=== PATIENT | male | born 1935 | race Caucasian/White ===

== ENCOUNTER 2017-01-18 10:00 | Outpatient (RCR) | payer MEDICARE, OTHER ==
[2017-01-04 10:00] VITALS: BP 136/52; PULSE 49; TEMP 97.2
[2017-01-12 10:00] VITALS: BP 143/53; PULSE 58; TEMP 98.1
[~2017-01-18] VITALS: Ht 182.9 cm; Wt 95.0 kg
[~2017-01-18 10:00] MED LIST: ACTOS30 MG PO; ALBUTEROL0.09 MG/A3 IH; ALDACTONE 25MG25 M1 PO; ASPI81TA; ASPIRIN 81M81 MG/TA2 PO; ASPIRIN E.C. 8181 MG PO; AZILECT1 MG PO; BLOOD PRESSURE MED; CIPRO 500MG TA500 MG PO; DOXYCYCLINE 10100 MG PO; GLUCOPHAGE1000 MG PO; HCTZ 25MG TAB25 MG PO; HCTZ 25MG25 MG PO; HUMULIN 70/3100 U/M1 SQ; HUMULIN 70/3100 U/ML SC; HYDRODIURIL50 MG PO; INSHUMULIN7030 SC; INSULIN 70/3100 U/ML IJ; LASIX 20MG TABL20 MG PO; MIRAPEX 1MG PO; MIRAPEX0.5 MG PO; MULTIVITAMIN SEN PO; NEURONTIN300 MG/CAP PO; PHENERGAN/CODEIN1 ML PO; PLENDIL10 MG PO; SINEMET 25/101 UDTAB PO; ZANTAC 150MG T150 MG PO; ZESTRIL40 MG PO; ZITHROMAX Z PA250 MG PO; ZOCOR; ZOCOR 20MG20 MG PO
[2017-01-18 10:17] VITALS: BP 136/55; PULSE 51; TEMP 97.5
== END 2017-01-18 11:15 | disposition home or self-care (01) ==
LOC: EUO 10:00
DX: C67.9 Malignant neoplasm of bladder, unspecified (principal)
CPT/HCPCS: J9031; J9214

== ENCOUNTER 2017-05-10 10:00 | Outpatient (RCR) | payer MEDICARE, OTHER ==
[2017-04-26 11:06] VITALS: BP 114/52; PULSE 48; TEMP 97.4
[2017-05-03 10:48] VITALS: BP 135/57; PULSE 55; TEMP 97.5
[~2017-05-10] VITALS: Ht 182.9 cm; Wt 97.7 kg
[2017-05-10 10:21] VITALS: BP 123/50; PULSE 49; TEMP 97.4
== END 2017-05-10 11:13 | disposition home or self-care (01) ==
LOC: EUO 10:00
DX: Z51.11 Encounter for antineoplastic chemotherapy (principal); C67.9 Malignant neoplasm of bladder, unspecified
CPT/HCPCS: J9031; J9214

== ENCOUNTER → 2017-10-19 | Outpatient (CLI) | payer MEDICARE, OTHER | LOC: COL.RAD 12:35 | DX: M25.551 Pain in right hip (principal) | CPT/HCPCS: J3301; Q9967 ==

== ENCOUNTER 2018-02-17 10:00 | Outpatient (RCR) | payer MEDICARE, OTHER | END 2018-02-18 14:58 | disposition home or self-care (01) | LOC: WSOT 10:00 | DX: G20 Parkinson's disease (principal) | CPT/HCPCS: G8987-GO; G8988-GO; G8989-GO ==

== ENCOUNTER → 2018-05-31 | Outpatient (CLI) | payer MEDICARE, OTHER ==
[2018-05-31 14:00] LABS: HEMATOCRIT 37.7 % (42.0-52.0); HEMOGLOBIN 11.9 g/dl (13.5-18.0); MEAN CELL VOLUME 95 fl (80.0-100.0); MEAN CORPUSCULAR HEMOGLOBIN 30 pg (27.0-31.0); MEAN CORPUSCULAR HGB CONC 32 g/dl (33.0-37.0); MEAN PLATELET VOLUME 9.8 fl (7.4-10.4); PLATELET COUNT 169 K/mm3 (130-400); RED BLOOD COUNT 3.95 M/mm3 (4.20-5.60); REDCELL DISTRIBUTION WIDTH-CV 14.4 % (11.5-14.5)
[2018-05-31 14:10] LABS: CALCIUM 8.7 mg/dL (8.4-10.2); CREATININE, serum 1.76 mg/dL (0.66-1.25); POTASSIUM 4.4 mmol/L (3.4-5.0)
[2018-05-31 14:16] LABS: INR 1.1 (0.8-3.0); PROTHROMBIN TIME 12.1 SECONDS (9.7-12.8)
== END ==
LOC: COL.LAB 13:02
PROVIDERS: Internal Medicine Interventional Cardiology
DX: R00.1 Bradycardia, unspecified (principal)

== ENCOUNTER → 2018-07-12 | Outpatient (CLI) | payer MEDICARE, OTHER | LOC: COL.RAD 13:09 | DX: J41.1 Mucopurulent chronic bronchitis (principal); Z95.828 Presence of other vascular implants and grafts ==

== ENCOUNTER 2018-09-04 22:55 | Observation (INO) | payer MEDICARE, OTHER ==
[~2018-09-04] VITALS: Ht 182.9 cm; Wt 96.1 kg
[2018-09-04 23:25] LABS: BASO # 0.1 (0.0-0.2); BASO % 0.8 % (0.0-2.0); EOS # 0.5 (0.0-0.7); EOS % 5.2 % (0-4.0); GRAN % 65.5 % (42.2-75.2); HEMATOCRIT 40.2 % (42.0-52.0); LYMPH # 1.6 (1.2-3.4); LYMPH % 17.7 % (20.0-51.0); MEAN CELL VOLUME 94 fl (80.0-100.0); MEAN CORPUSCULAR HEMOGLOBIN 30 pg (27.0-31.0); MEAN CORPUSCULAR HGB CONC 32 g/dl (33.0-37.0); MEAN PLATELET VOLUME 9.5 fl (7.4-10.4); MONO # 0.9 (0.1-0.6); MONO % 10.4 % (1.7-9.3); PLATELET COUNT 210 K/mm3 (130-400); RED BLOOD COUNT 4.27 M/mm3 (4.20-5.60); REDCELL DISTRIBUTION WIDTH-CV 13.6 % (11.5-14.5)
[2018-09-04 23:36] LABS: ALBUMIN 4.1 gm/dL (3.5-5.0); BILIRUBIN,TOTAL 0.3 mg/dL (0.0-1.0); CALCIUM 9.2 mg/dL (8.4-10.2); CREATININE, serum 1.91 mg/dL (0.66-1.25); POTASSIUM 4.9 mmol/L (3.4-5.0); TOTAL PROTEIN 6.8 gm/dL (6.4-8.2)
[2018-09-05] MEDS ORDERED: MIRAPEX0.75 MG PO (00:46)
[2018-09-05] MEDS ORDERED: AZILECT1 MG PO (00:59)
[2018-09-05] MEDS ORDERED: ALDACTONE 25MG25 M1 (01:00)
[2018-09-05] MEDS ORDERED: JANUVIA50 MG PO (01:00)
[2018-09-05] MEDS ORDERED: NORCO 325 MG-51 TAB PO (01:01)
[2018-09-05] MEDS ORDERED: PRESERVISION1 SGL PO (01:01)
[2018-09-05 01:15] LABS: COLLECTION METHOD CLEAN CATCH
[2018-09-05 01:18] LABS: PH 5 (5-8); SQUAMOUS EPITHELIAL 0-2 /hpf; URINE APPEARANCE Clear; URINE BACTERIA None Seen /hpf; URINE BILIRUBIN Negative (NEGATIVE); URINE BLOOD Negative (NEGATIVE); URINE COLOR Yellow; URINE GLUCOSE Negative (NEGATIVE); URINE KETONE Negative (NEGATIVE); URINE LEUKOCYTE ESTERASE Negative (NEGATIVE); URINE NITRATE Negative (NEGATIVE); URINE PROTEIN(semi-quant) Negative (NEGATIVE); URINE RBC 0-2 /hpf; URINE UROBILINOGEN Negative (NEGATIVE)
[2018-09-05 01:32] VITALS: BP 151/61; PULSE 62; TEMP 97.6
[2018-09-05 04:58] VITALS: BP 136/62; PULSE 62
[2018-09-05 07:47] VITALS: BP 155/55; PULSE 62; TEMP 97.5
[2018-09-05 11:14] VITALS: BP 163/67; PULSE 74; TEMP 97.2
[2018-09-05 15:07] VITALS: BP 143/55; PULSE 60; TEMP 97.2
[2018-09-05 19:56] VITALS: BP 148/54; PULSE 61; TEMP 97.9
[2018-09-06 00:20] VITALS: BP 157/56; PULSE 64; TEMP 97.6
[2018-09-06 04:15] VITALS: BP 140/60; PULSE 59; TEMP 97.9
[2018-09-06 07:33] VITALS: BP 149/56; PULSE 61; TEMP 97.5
== END 2018-09-06 13:56 | disposition home or self-care (01) ==
LOC: COL.ER 22:55 → MEDICAL 09-05 01:04
PROVIDERS: Emergency Medicine
DX: E11.649 Type 2 diabetes mellitus with hypoglycemia without coma (principal); G20 Parkinson's disease; I10 Essential (primary) hypertension; E78.5 Hyperlipidemia, unspecified; E11.40 Type 2 diabetes mellitus with diabetic neuropathy, unspecified; K59.00 Constipation, unspecified; G31.84 Mild cognitive impairment of uncertain or unknown etiology; Z79.4 Long term (current) use of insulin; Z79.82 Long term (current) use of aspirin; Z85.51 Personal history of malignant neoplasm of bladder; Z87.891 Personal history of nicotine dependence; Z82.3 Family history of stroke; Z83.3 Family history of diabetes mellitus; Z82.49 Family history of ischemic heart disease and other diseases of the circulatory system; Z80.52 Family history of malignant neoplasm of bladder
CPT/HCPCS: G0378; J1815; J7042

== ENCOUNTER 2018-11-12 08:41 | Emergency (ER) | payer MEDICARE, OTHER ==
[~2018-11-12] VITALS: Ht 182.9 cm; Wt 90.9 kg
[~2018-11-12 08:41] MED LIST changes: +ALDACTONE 25MG25 M1; +JANUVIA50 MG PO; +MIRAPEX0.75 MG PO; +NORCO 325 MG-51 TAB PO; +PRESERVISION1 SGL PO
[2018-11-12 08:44] VITALS: BP 136/64; TEMP 97.5
[2018-11-12] MEDS ORDERED: NOVOLIN 70/30 710 ML SQ ×2 (09:32→09:34)
[2018-11-12 10:19] LABS: BASO # 0.1 (0.0-0.2); BASO % 0.5 % (0.0-2.0); EOS # 0.1 (0.0-0.7); EOS % 1.2 % (0-4.0); GRAN # 8.6 (1.4-6.5); GRAN % 78.7 % (42.2-75.2); HEMATOCRIT 40.1 % (42.0-52.0); HEMOGLOBIN 12.9 g/dl (13.5-18.0); LYMPH # 1.3 (1.2-3.4); LYMPH % 11.9 % (20.0-51.0); MEAN CELL VOLUME 93 fl (80.0-100.0); MEAN CORPUSCULAR HEMOGLOBIN 30 pg (27.0-31.0); MEAN CORPUSCULAR HGB CONC 32 g/dl (33.0-37.0); MEAN PLATELET VOLUME 9.6 fl (7.4-10.4); MONO # 0.8 (0.1-0.6); PLATELET COUNT 172 K/mm3 (130-400); RED BLOOD COUNT 4.31 M/mm3 (4.20-5.60); REDCELL DISTRIBUTION WIDTH-CV 14.6 % (11.5-14.5)
[2018-11-12 10:27] LABS: ALBUMIN 3.9 gm/dL (3.5-5.0); BILIRUBIN,TOTAL 0.4 mg/dL (0.0-1.0); CALCIUM 9.2 mg/dL (8.4-10.2); CREATININE, serum 1.87 mg/dL (0.66-1.25); POTASSIUM 4.7 mmol/L (3.4-5.0); TOTAL PROTEIN 6.7 gm/dL (6.4-8.2)
[2018-11-12 12:34] VITALS: PULSE 70
== END 2018-11-12 12:35 | disposition home or self-care (01) ==
LOC: COL.ER 08:41
PROVIDERS: Emergency Medicine
DX: E11.649 Type 2 diabetes mellitus with hypoglycemia without coma (principal); Z79.82 Long term (current) use of aspirin; Z79.4 Long term (current) use of insulin; Z79.02 Long term (current) use of antithrombotics/antiplatelets

== ENCOUNTER → 2018-12-31 | Outpatient (CLI) | payer MEDICARE, OTHER ==
[~2018-12-31] MED LIST changes: +NOVOLIN 70/30 710 ML SQ
[2018-12-31 13:37] LABS: ALBUMIN 4.1 gm/dL (3.5-5.0); BILIRUBIN,TOTAL 0.3 mg/dL (0.0-1.0); CALCIUM 8.9 mg/dL (8.4-10.2); CREATININE, serum 1.57 (0.66-1.25); POTASSIUM 4.9 mmol/L (3.4-5.0); TOTAL PROTEIN 7.2 gm/dL (6.4-8.2)
[2018-12-31 14:23] LABS: BASO % 0.3 % (0.0-2.0); EOS # 0.2 (0.0-0.7); EOS % 2.5 % (0-4.0); GRAN # 6.7 (1.4-6.5); GRAN % 76.7 % (42.2-75.2); HEMATOCRIT 39.7 % (42.0-52.0); HEMOGLOBIN 12.4 g/dl (13.5-18.0); LYMPH # 1.1 (1.2-3.4); LYMPH % 12.3 % (20.0-51.0); MEAN CELL VOLUME 95 fl (80.0-100.0); MEAN CORPUSCULAR HEMOGLOBIN 30 pg (27.0-31.0); MEAN CORPUSCULAR HGB CONC 31 g/dl (33.0-37.0); MEAN PLATELET VOLUME 10.5 fl (7.4-10.4); MONO # 0.7 (0.1-0.6); PLATELET COUNT 155 K/mm3 (130-400); RED BLOOD COUNT 4.17 M/mm3 (4.20-5.60); REDCELL DISTRIBUTION WIDTH-CV 13.2 % (11.5-14.5)
== END ==
LOC: COL.RAD 12:29 → COL.LAB 12:29
PROVIDERS: Family Medicine
DX: J20.9 Acute bronchitis, unspecified (principal); Z95.0 Presence of cardiac pacemaker; R09.89 Other specified symptoms and signs involving the circulatory and respiratory systems

== ENCOUNTER 2019-02-24 21:35 | Emergency (ER) | payer MEDICARE, OTHER ==
[~2019-02-24] VITALS: Ht 182.9 cm; Wt 95.5 kg
[2019-02-24 21:39] VITALS: BP 174/76; TEMP 97.9
[2019-02-24 23:02] LABS: BASO % 0.5 % (0.0-2.0); EOS # 0.4 (0.0-0.7); EOS % 4.8 % (0-4.0); GRAN # 5.7 (1.4-6.5); GRAN % 75.6 % (42.2-75.2); HEMOGLOBIN 11.2 g/dl (13.5-18.0); LYMPH # 0.7 (1.2-3.4); LYMPH % 9.7 % (20.0-51.0); MEAN CELL VOLUME 95 fl (80.0-100.0); MEAN CORPUSCULAR HEMOGLOBIN 30 pg (27.0-31.0); MEAN CORPUSCULAR HGB CONC 32 g/dl (33.0-37.0); MEAN PLATELET VOLUME 9.7 fl (7.4-10.4); MONO # 0.7 (0.1-0.6); MONO % 9.1 % (1.7-9.3); PLATELET COUNT 161 K/mm3 (130-400); RED BLOOD COUNT 3.73 M/mm3 (4.20-5.60); REDCELL DISTRIBUTION WIDTH-CV 13.4 % (11.5-14.5)
[2019-02-24 23:03] LABS: HEMATOCRIT 35.5 % (42.0-52.0)
[2019-02-24 23:14] LABS: PROTHROMBIN TIME 11.6 SECONDS (9.7-12.8)
[2019-02-24 23:15] LABS: CREATININE, serum 1.92 (0.66-1.25); POTASSIUM 4.9 mmol/L (3.4-5.0)
[2019-02-25 00:35] VITALS: PULSE 86
== END 2019-02-25 00:25 | disposition home or self-care (01) ==
LOC: COL.ER 21:35
PROVIDERS: Emergency Medicine
DX: R60.9 Edema, unspecified (principal); Z95.0 Presence of cardiac pacemaker; Z79.82 Long term (current) use of aspirin; Z79.4 Long term (current) use of insulin
CPT/HCPCS: J1650

== ENCOUNTER → 2019-03-07 | Outpatient (CLI) | payer MEDICARE, OTHER | LOC: COL.RAD 11:42 | DX: I82.B12 Acute embolism and thrombosis of left subclavian vein (principal) | CPT/HCPCS: A9540; A9567 ==

== ENCOUNTER 2019-03-18 15:54 | Emergency (ER) | payer MEDICARE, OTHER ==
[~2019-03-18] VITALS: Ht 182.9 cm; Wt 97.3 kg
[2019-03-18 15:57] VITALS: BP 142/63; TEMP 97.2
[2019-03-18] MEDS ORDERED: JANTOVEN2 MG (16:00)
[2019-03-18] MEDS ORDERED: CEPHALEXIN500 M1 PO (17:54)
[2019-03-18 18:05] VITALS: PULSE 79
== END 2019-03-18 18:02 | disposition home or self-care (01) ==
LOC: COL.ER 15:54
DX: S62.667A Nondisplaced fracture of distal phalanx of left little finger, initial encounter for closed fracture (principal); S61.213A Laceration without foreign body of left middle finger without damage to nail, initial encounter; S61.211A Laceration without foreign body of left index finger without damage to nail, initial encounter; S61.215A Laceration without foreign body of left ring finger without damage to nail, initial encounter; I25.10 Atherosclerotic heart disease of native coronary artery without angina pectoris; Z95.0 Presence of cardiac pacemaker; Z79.01 Long term (current) use of anticoagulants; E11.9 Type 2 diabetes mellitus without complications; E78.5 Hyperlipidemia, unspecified; I10 Essential (primary) hypertension; G20 Parkinson's disease; W27.0XXA Contact with workbench tool, initial encounter

== ENCOUNTER → 2019-07-19 | Outpatient (CLI) | payer MEDICARE, OTHER ==
[~2019-07-19] MED LIST changes: +ANORO IH; +CEPHALEXIN500 M1 PO; +COZAAR 25MG25 MG/TAB PO; +DEMADEX 20MG20 M1 PO; +ELIQUIS 2.5 PO; +ELIQUIS 5MG PO; +JANTOVEN2 MG; +LANTUS SOLOS100 U/ML SQ
== END ==
LOC: COL.RAD 08:30
DX: G20 Parkinson's disease (principal); H53.2 Diplopia

== ENCOUNTER 2019-08-09 17:38 | Emergency (ER) | payer MEDICARE, OTHER ==
[~2019-08-09] VITALS: Ht 182.9 cm; Wt 87.7 kg
[2019-08-09 17:43] VITALS: BP 140/63; TEMP 97.7
[2019-08-09] MEDS ORDERED: CEPHALEXIN500 M1 PO (20:22)
[2019-08-09 20:35] VITALS: PULSE 68
== END 2019-08-09 20:35 | disposition home or self-care (01) ==
LOC: COL.ER 17:38
DX: S61.412A Laceration without foreign body of left hand, initial encounter (principal); I11.0 Hypertensive heart disease with heart failure; I50.9 Heart failure, unspecified; G20 Parkinson's disease; J44.9 Chronic obstructive pulmonary disease, unspecified; Z79.4 Long term (current) use of insulin; Z79.82 Long term (current) use of aspirin; W26.8XXA Contact with other sharp object(s), not elsewhere classified, initial encounter; Y92.009 Unspecified place in unspecified non-institutional (private) residence as the place of occurrence of the external cause

== ENCOUNTER → 2019-08-19 | Outpatient (CLI) | payer MEDICARE, OTHER ==
[2019-08-19 09:22] VITALS: BP 134/61; PULSE 72; TEMP 96.9
== END ==
LOC: COL.ER 09:17
DX: S61.412D Laceration without foreign body of left hand, subsequent encounter (principal); X58.XXXD Exposure to other specified factors, subsequent encounter

== ENCOUNTER 2019-08-23 10:30 | Outpatient (RCR) | payer MEDICARE, OTHER | END 2019-10-18 | disposition home or self-care (01) | LOC: WSST | DX: G20 Parkinson's disease (principal); R49.8 Other voice and resonance disorders; R47.89 Other speech disturbances ==

== ENCOUNTER → 2019-10-13 | Outpatient (CLI) | payer MEDICARE, OTHER | LOC: COL.RAD 07:39 | DX: N18.3 Chronic kidney disease, stage 3 (moderate) (principal); N19 Unspecified kidney failure ==

== ENCOUNTER 2020-04-26 10:43 | Day surgery (SDC) | payer MEDICARE, OTHER ==
[~2020-04-26] VITALS: Ht 182.9 cm; Wt 97.9 kg
[2020-04-26 11:46] VITALS: BP 96/52; PULSE 125; TEMP 97.4
[2020-04-26] MEDS ORDERED: MIRAPEX0.5 MG PO (13:38)
[2020-04-26] MEDS ORDERED: PROTONIX 40MG T40 MG PO (13:58)
[2020-04-26] MEDS ORDERED: SYSTANE BALANCE10 M1 OP (13:59)
[2020-04-26] MEDS ORDERED: [UNRECOGNIZED DRUG - OTHER] (14:01)
[2020-04-26 15:00] VITALS: BP 165/71; PULSE 60; TEMP 97.1
[2020-04-26 15:07] VITALS: BP 166/72; PULSE 59
[2020-04-26 15:15] VITALS: BP 160/70; PULSE 60
[2020-04-26 15:30] VITALS: BP 158/59; PULSE 60
[2020-04-26 16:00] VITALS: BP 164/60; PULSE 64
== END 2020-04-26 16:05 | disposition home or self-care (01) ==
LOC: SDCO 10:43
DX: C67.8 Malignant neoplasm of overlapping sites of bladder (principal); I10 Essential (primary) hypertension; G20 Parkinson's disease; J44.9 Chronic obstructive pulmonary disease, unspecified; G89.29 Other chronic pain; M19.90 Unspecified osteoarthritis, unspecified site; E11.42 Type 2 diabetes mellitus with diabetic polyneuropathy; Z79.82 Long term (current) use of aspirin; Z87.891 Personal history of nicotine dependence; Z83.3 Family history of diabetes mellitus; Z79.4 Long term (current) use of insulin; Z95.0 Presence of cardiac pacemaker; Z86.718 Personal history of other venous thrombosis and embolism
CPT/HCPCS: C1769; J0690; J1100; J1885; J2405; J2704; J3010; J7030; Q9967

== ENCOUNTER 2020-10-25 15:30 | Outpatient (RCR) | payer MEDICARE, OTHER ==
[~2020-10-25 15:30] MED LIST changes: +PROTONIX 40MG T40 MG PO; +SYSTANE BALANCE10 M1 OP; +[UNRECOGNIZED DRUG - OTHER]
[2020-10-27] MEDS ORDERED: SINEMET 25/101 UDTAB PO (22:18)
[2020-10-27] MEDS ORDERED: ALDACTONE 25MG25 M1 PO (22:25)
[2020-10-27] MEDS ORDERED: ANORO IH (22:26)
[2020-10-27] MEDS ORDERED: SYNTHROID0.1 MG/TAB PO (22:26)
[2020-10-27] MEDS ORDERED: ATROPINE 2 ML2 ML SL (22:27)
[2020-10-27] MEDS ORDERED: [UNRECOGNIZED DRUG - OTHER] OP (22:29)
[2020-10-27] MEDS ORDERED: MELATONIN5 M1 PO (22:31)
[2020-10-27] MEDS ORDERED: IRON TABLETS325 MG PO (22:33)
[2020-10-30] MEDS ORDERED: OMNICEF 300MG300 MG PO (12:21)
[2020-10-30] MEDS ORDERED: PROAMATINE 5MG T5 MG PO ×2 (12:22)
[2020-12-18] MEDS ORDERED: LASIX 20MG TABL20 MG PO (12:53)
== END 2021-01-13 | disposition home or self-care (01) ==
LOC: MKS.ESL.OT
DX: G20 Parkinson's disease (principal); G24.9 Dystonia, unspecified; K11.7 Disturbances of salivary secretion

== ENCOUNTER 2020-10-27 14:13 | Inpatient (IN) | payer MEDICARE, OTHER ==
[~2020-10-27] VITALS: Ht 182.9 cm; Wt 92.0 kg
[2020-10-27 15:01] LABS: ALANINE AMINOTRANSFERASE 6 U/L (4-49); ALKALINE PHOSPHATASE 37 U/L (50-136); ANION GAP 9 mmol/L (7-16); AST,SGOT 28 U/L (15-37); BILIRUBIN,TOTAL 0.5 mg/dL (0.0-1.0); BLOOD UREA NITROGEN 62 mg/dL (9-20); CALCIUM 8.8 mg/dL (8.4-10.2); CARBON DIOXIDE 26 mmol/L (22-30); CHLORIDE 99 mmol/L (98-107); CREATININE, serum 2.48 (0.66-1.25); GLUCOSE 140 mg/dL (74-106); SODIUM 134 mmol/L (137-145); TOTAL PROTEIN 7.3 gm/dL (6.4-8.2)
[2020-10-27 15:13] LABS: TROPONIN-I < 0.012 ng/mL (0.000-0.035)
[2020-10-27 15:46] LABS: BASO % 0.3 % (0.0-2.0); EOS # 0.1 (0.0-0.7); EOS % 1.3 % (0-4.0); GRAN # 5.4 (1.4-6.5); GRAN % 70.1 % (42.2-75.2); HEMOGLOBIN 11.3 g/dl (13.5-18.0); LYMPH # 1.2 (1.2-3.4); LYMPH % 15.4 % (20.0-51.0); MEAN CELL VOLUME 90 fl (80.0-100.0); MEAN CORPUSCULAR HEMOGLOBIN 28 pg (27.0-31.0); MEAN CORPUSCULAR HGB CONC 31 g/dl (33.0-37.0); MEAN PLATELET VOLUME 9.4 fl (7.4-10.4); MONO % 12.5 % (1.7-9.3); PLATELET COUNT 229 K/mm3 (130-400); REDCELL DISTRIBUTION WIDTH-CV 14.4 % (11.5-14.5)
[2020-10-27 18:11] VITALS: BP 155/70; PULSE 61
--- NOTE | 2020-10-27 19:30 | NUR ---
ARRIVED PER CART FROM ED TO ROOM 327. PT IS ALERT AND ORIENTED X4. HAS SL TO RIGHT FOREARM WITHOUT REDNESS OR SWELLING. ORIENTED TO ROOM AND BED CONTROLS.
[2020-10-27 19:59] VITALS: BP 145/58; PULSE 69; TEMP 97.8
[2020-10-27] MEDS ORDERED: SINEMET 25/101 UDTAB PO (22:18)
[2020-10-27] MEDS ORDERED: ALDACTONE 25MG25 M1 PO (22:25)
[2020-10-27] MEDS ORDERED: SYNTHROID0.1 MG/TAB PO (22:26)
[2020-10-27] MEDS ORDERED: ANORO IH (22:26)
[2020-10-27] MEDS ORDERED: ATROPINE 2 ML2 ML SL (22:27)
[2020-10-27] MEDS ORDERED: [UNRECOGNIZED DRUG - OTHER] OP (22:29)
[2020-10-27] MEDS ORDERED: MELATONIN5 M1 PO (22:31)
[2020-10-27] MEDS ORDERED: IRON TABLETS325 MG PO (22:33)
--- NOTE | 2020-10-27 23:30 | NUR ---
PT HAS IVF INFUSING TO RIGHT FOREARM WITHOUT PROBLEM. USING URINAL WITHOUT DIFFICULTY. BILATERAL LOWER LEG EDEMA PRESENT, SCDS ON.
[2020-10-27 23:59] VITALS: BP 114/59; PULSE 79; TEMP 97.6
[2020-10-28] VITALS (9 sets, daily range): BP systolic 85–196; BP diastolic 42–93; PULSE 53–72; TEMP 97.3–98.6
--- NOTE | 2020-10-28 00:05 | NUR ---
TAKES SCHEDULED HS MEDS. HG=652, SCHEDULED LEVEMIR 8UNITS GIVEN WITH A SNACK.
--- NOTE | 2020-10-28 06:15 | NUR ---
INCONTINENT OF URINE WELL USING THE URINAL. COMPLETE BED CHANGE DONE. DOES HAVE A SPINAL STIMULATOR. AM MEDS GIVEN.
--- NOTE | 2020-10-28 07:50 | NUR ---
Pt nurse MARY Montes notified of PT having a lead off
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
[2020-10-28 15:36] LABS: COLLECTION METHOD CLEAN CATCH
[2020-10-28 16:06] LABS: PH 6 (5-8); SQUAMOUS EPITHELIAL None Seen /hpf; URINE APPEARANCE Cloudy; URINE BACTERIA Rare /hpf; URINE BILIRUBIN Negative (NEGATIVE); URINE BLOOD 1+ (NEGATIVE); URINE COLOR Yellow; URINE GLUCOSE Negative (NEGATIVE); URINE KETONE Negative (NEGATIVE); URINE LEUKOCYTE ESTERASE 3+ (NEGATIVE); URINE NITRATE Negative (NEGATIVE); URINE PROTEIN(semi-quant) Negative (NEGATIVE); URINE UROBILINOGEN Negative (NEGATIVE)
--- NOTE | 2020-10-28 19:09 | NUR ---
Patient sitting up in chair. He has done well today. rounded & orders obtained. Teds hose on thigh high per orders. Patient also started on new medication & education was provided on Proamatine. He continue to have positive orthostatics, But does not report feeling light headed or dizzy. He ambulated halls with therapy & has been up and down to the bathroom & done well stand by assist with walker & gaitbelt. Patient has also had low blood sugars today, hospitalist aware & medication adjustments made. Patient provided with snacks & juice as needed. He reports he has low blood sugars at home & frequently checks sugars at least 6 times a day. He shows no signs or symptoms of low sugars. Will report off to night nurse
--- NOTE | 2020-10-28 21:00 | NUR ---
PT ASSISTED BACK TO BED FROM CHAIR WITH ONE ASSIST. B/P HAS IMPROVED. IVF CONTINUE TO RT FOREARM WITHOUT PROBLEM. PT IS ALERT AND ORIENTED X4.
--- NOTE | 2020-10-28 21:45 | NUR ---
HS MEDS GIVEN INCLUDING LEVEMIR INS, YA=[id number]. PT DENIES PAIN AT THIS TIME.
[2020-10-29 04:10] VITALS: BP 150/62; PULSE 70; TEMP 98.7
[2020-10-29 07:49] LABS: BASO # 0.1 (0.0-0.2); BASO % 0.4 % (0.0-2.0); EOS # 0.3 (0.0-0.7); EOS % 2.6 % (0-4.0); GRAN # 8.8 (1.4-6.5); GRAN % 79.3 % (42.2-75.2); HEMOGLOBIN 10.7 g/dl (13.5-18.0); LYMPH # 0.9 (1.2-3.4); LYMPH % 8.2 % (20.0-51.0); MEAN CELL VOLUME 90 fl (80.0-100.0); MEAN CORPUSCULAR HEMOGLOBIN 29 pg (27.0-31.0); MEAN CORPUSCULAR HGB CONC 32 g/dl (33.0-37.0); MEAN PLATELET VOLUME 9.7 fl (7.4-10.4); MONO % 9.1 % (1.7-9.3); PLATELET COUNT 221 K/mm3 (130-400); RED BLOOD COUNT 3.76 M/mm3 (4.20-5.60); REDCELL DISTRIBUTION WIDTH-CV 14.3 % (11.5-14.5)
[2020-10-29 07:54] LABS: HEMATOCRIT 33.9 % (42.0-52.0)
[2020-10-29 07:59] LABS: CREATININE, serum 1.72 (0.66-1.25); POTASSIUM 4.5 mmol/L (3.4-5.0)
[2020-10-29 08:00] VITALS: BP 159/57; PULSE 62; TEMP 98.6
--- NOTE | 2020-10-29 09:21 | NUR ---
PT UP TO RECLINER AFTER USING BATHROOM VOIDED AND THEN TO RECLINER WITH SBAX1. AM ASSESMENTS COMPLETE. VSS AT THIS TIME. B=121. LOW BG REPORTED FROM NOC SHIFT. PT AND NIGHT NURSE THINK NEW MEDICATION MAY BE CAUSING LOW BG. WILL FOLLOW UP WITH LEV AND DR. MO. SPOKE WITH PT'S AND GAVE UPDATE.
[2020-10-29 11:45] VITALS: BP 102/87; PULSE 65; TEMP 98.1
--- NOTE | 2020-10-29 12:08 | NUR ---
First visit from the harness racing handicapper. No needs right now.
[2020-10-29 16:00] VITALS: BP 142/77; PULSE 60; TEMP 99.2
--- NOTE | 2020-10-29 17:07 | NUR ---
C Software Engineer met with patient to discuss home health services. Patient is agreeable to this and selected [facility] from Medicare.gov list of agencies. SW faxed referral to [facility]. SW contacted patient's , Merari to provide update and will continue to follow.
--- NOTE | 2020-10-29 18:48 | NUR ---
REPORT TO DONNA JEFFRIES RN.
[2020-10-29 20:33] VITALS: BP 179/74; PULSE 77; TEMP 98.6
--- NOTE | 2020-10-29 22:00 | NUR ---
Pt doing well resting in bed. No complaints at this time. Replaced telemetry pads. Informed that he did not need insulin at this time.
--- NOTE | 2020-10-30 01:02 | NUR ---
assisted patient to the restroom. He did well with a standby assist. Patient is having minimal diarrhea. Assisted back to bed, no other needs
[2020-10-30 02:14] VITALS: BP 145/58; PULSE 60; TEMP 97.9
[2020-10-30 04:00] VITALS: BP 157/61; PULSE 62; TEMP 97.3
[2020-10-30 07:29] VITALS: BP 164/76; PULSE 76; TEMP 97.5
[2020-10-30 07:53] LABS: CALCIUM 8.5 mg/dL (8.4-10.2); CREATININE, serum 1.63 (0.66-1.25); POTASSIUM 4.2 mmol/L (3.4-5.0)
[2020-10-30 07:56] LABS: BASO % 0.3 % (0.0-2.0); EOS # 0.3 (0.0-0.7); EOS % 2.9 % (0-4.0); GRAN # 8.6 (1.4-6.5); GRAN % 79.2 % (42.2-75.2); HEMOGLOBIN 11.2 g/dl (13.5-18.0); LYMPH % 9.1 % (20.0-51.0); MEAN CELL VOLUME 90 fl (80.0-100.0); MEAN CORPUSCULAR HEMOGLOBIN 29 pg (27.0-31.0); MEAN CORPUSCULAR HGB CONC 32 g/dl (33.0-37.0); MEAN PLATELET VOLUME 9.4 fl (7.4-10.4); MONO # 0.9 (0.1-0.6); MONO % 7.9 % (1.7-9.3); PLATELET COUNT 231 K/mm3 (130-400); REDCELL DISTRIBUTION WIDTH-CV 14.4 % (11.5-14.5)
[2020-10-30 07:57] LABS: HEMATOCRIT 35.2 % (42.0-52.0)
[2020-10-30 11:27] VITALS: BP 144/51; PULSE 59; TEMP 97.4
[2020-10-30] MEDS ORDERED: OMNICEF 300MG300 MG PO (12:21)
[2020-10-30] MEDS ORDERED: PROAMATINE 5MG T5 MG PO (12:22)
--- NOTE | 2020-10-30 16:10 | NUR ---
Patient is ready to be discharged today. CARL contacted patient's , Merari who will coal picker patient today. CARL contacted Cydni at [facility] who advised they can accept referral. [facility]. No additional needs at this time.
--- NOTE | 2020-10-31 12:00 | NUR ---
Pt called concerned about Manuel's blood sugar. Stated that his insulin was discontinued and he woke up this morning with a blood sugar in the low 200s. She stated that she gave him insulin as she would have prior to it being discontinued. I talked with Dr Oconnor regarding this. He stated that he is concerned with the patient having too low of blood sugars and that one in the 200s is okay for him. Stated that she should continue taking his blood sugar prior to eating and keep a log of it. If it closer to the 300 range, then call his primary care doctor. I advised her to take the log to his appointment next week. Oral medication was also started at [facility]. Told her this might take a little time to start working. No other needs or questions.
== END 2020-10-30 14:27 | disposition home health service (06) | DRG 57 ==
LOC: COL.ER 14:13 → JCC 18:25
PROVIDERS: Emergency Medicine; Physician Assistant; ADMIT Hospitalist
DX: G20 Parkinson's disease (principal); N39.0 Urinary tract infection, site not specified; N17.9 Acute kidney failure, unspecified; E11.649 Type 2 diabetes mellitus with hypoglycemia without coma; I95.1 Orthostatic hypotension; J44.9 Chronic obstructive pulmonary disease, unspecified; E03.9 Hypothyroidism, unspecified; E11.43 Type 2 diabetes mellitus with diabetic autonomic (poly)neuropathy; N18.9 Chronic kidney disease, unspecified; E11.22 Type 2 diabetes mellitus with diabetic chronic kidney disease; E86.0 Dehydration; Z95.0 Presence of cardiac pacemaker; Z79.4 Long term (current) use of insulin; Z20.822 Contact with and (suspected) exposure to COVID-19
CPT/HCPCS: 99232-AI; 99239; J0696; J1650; J1815; J7030

== ENCOUNTER 2021-01-16 07:42 | Inpatient (IN) | payer MEDICARE, OTHER ==
[~2021-01-16] VITALS: Ht 182.9 cm; Wt 83.8 kg
[~2021-01-16 07:42] MED LIST changes: +ATROPINE 2 ML2 ML SL; +IRON TABLETS325 MG PO; +MELATONIN5 M1 PO; +OMNICEF 300MG300 MG PO; +PROAMATINE 5MG T5 MG PO; +SYNTHROID0.1 MG/TAB PO; +[UNRECOGNIZED DRUG - OTHER] OP
[2021-01-16 08:13] LABS: BASO % 0.3 % (0.0-2.0); EOS # 0.1 (0.0-0.7); EOS % 0.6 % (0-4.0); GRAN % 85.1 % (42.2-75.2); HEMOGLOBIN 10.9 g/dl (13.5-18.0); LYMPH # 0.8 (1.2-3.4); LYMPH % 5.3 % (20.0-51.0); MEAN CELL VOLUME 88 fl (80.0-100.0); MEAN CORPUSCULAR HEMOGLOBIN 28 pg (27.0-31.0); MEAN CORPUSCULAR HGB CONC 32 g/dl (33.0-37.0); MEAN PLATELET VOLUME 9.4 fl (7.4-10.4); MONO # 1.3 (0.1-0.6); MONO % 8.3 % (1.7-9.3); PLATELET COUNT 193 K/mm3 (130-400); RED BLOOD COUNT 3.92 M/mm3 (4.20-5.60); REDCELL DISTRIBUTION WIDTH-CV 14.1 % (11.5-14.5)
[2021-01-16 08:14] LABS: HEMATOCRIT 34.6 % (42.0-52.0)
[2021-01-16 08:23] LABS: INR 1.2 (0.8-3.0); PROTHROMBIN TIME 13.7 SECONDS (9.7-12.8)
[2021-01-16 08:28] LABS: ALANINE AMINOTRANSFERASE 4 U/L (4-49); ALBUMIN 3.7 gm/dL (3.5-5.0); ALKALINE PHOSPHATASE 32 U/L (50-136); ANION GAP 8 mmol/L (7-16); AST,SGOT 23 U/L (15-37); BILIRUBIN,TOTAL 0.4 mg/dL (0.0-1.0); BLOOD UREA NITROGEN 56 mg/dL (9-20); CALCIUM 8.6 mg/dL (8.4-10.2); CARBON DIOXIDE 28 mmol/L (22-30); CHLORIDE 102 mmol/L (98-107); CREATININE, serum 2.31 (0.66-1.25); GLUCOSE 124 mg/dL (74-106); POTASSIUM 4.1 mmol/L (3.4-5.0); SODIUM 138 mmol/L (137-145); TOTAL PROTEIN 6.9 gm/dL (6.4-8.2)
[2021-01-16 08:35] LABS: ALCOHOL(ethanol),MEDICAL < 10 mg/dL
[2021-01-16 08:40] LABS: TROPONIN-I < 0.012 ng/mL (0.000-0.035)
[2021-01-16 10:03] LABS: COLLECTION METHOD CLEAN CATCH
[2021-01-16 10:16] LABS: PH 5 (5-8); SQUAMOUS EPITHELIAL None Seen /hpf; URINE APPEARANCE Turbid; URINE BACTERIA Moderate /hpf; URINE BILIRUBIN Negative (NEGATIVE); URINE BLOOD 2+ (NEGATIVE); URINE COLOR Yellow; URINE GLUCOSE Negative (NEGATIVE); URINE KETONE Negative (NEGATIVE); URINE LEUKOCYTE ESTERASE 3+ (NEGATIVE); URINE NITRATE Negative (NEGATIVE); URINE PROTEIN(semi-quant) 1+ (NEGATIVE); URINE RBC 20-50 /hpf; URINE UROBILINOGEN Negative (NEGATIVE); URINE WBC >50 /hpf
[2021-01-16] MEDS ORDERED: PRESERVISION AREDS 2 (12:50)
[2021-01-16] MEDS ORDERED: LANTUS SOLOS100 U/ML SQ (12:54)
[2021-01-16] MEDS ORDERED: VITAMIN C500 MG PO (12:56)
[2021-01-16 13:00] VITALS: BP 148/50; PULSE 76; TEMP 97.5
[2021-01-16 16:48] VITALS: BP 144/58; PULSE 75
[2021-01-16 19:26] VITALS: BP 144/53; PULSE 94; TEMP 100.5
--- NOTE | 2021-01-16 19:37 | NUR ---
PT HAD UNEVENTFUL DAY AFTER ARRIVAL TO MEDICAL FLOOR. AT SHIFT CHANGE PT APPEARED TO BE SHIVERING, AND SEEMED SOMEWHAT OFF. VITALS WERE OBTAINED. PT'S TEMPERATURE WAS 100.5, HR WAS 94, BP WAS 144/53, AND PT WAS TACHYPNIC AT 32. WILL CONTACT NIGHT PROVIDER TO DISCUSS TREATMENT AT THIS TIME, PT DOES NOT HAVE TYLENOL ON DEC. REPORT GIVEN TO MARY GALE.
[2021-01-16 20:17] VITALS: BP 126/49; PULSE 83; TEMP 100.6
[2021-01-16 23:42] VITALS: PULSE 76; TEMP 98.3
[2021-01-17] VITALS (7 sets, daily range): BP systolic 100–169; BP diastolic 38–60; PULSE 60–78; TEMP 97.6–99.6
--- NOTE | 2021-01-17 06:07 | NUR ---
PATIENT RESTED QUIETLY IN BED THROUGHOUT THE NIGHT. NO NEW ISSUES NOTED OR REPORTED BY PATIENT.
--- NOTE | 2021-01-17 07:12 | NUR ---
Lying in bed with eyes open watching TV, waiting on breakfast to arrive. Patient is alert and oriented to self, location and year, confused on month and president. Denies pain. 1+ edema noted to bialt lower extremities. Patient says that he has a pain stimulator, his has the controller for it and she will bring it in later. THe stimulator has been off and she will turn on later when she comes in. Patient denies additional needs or concerns at this time.
[2021-01-17 07:13] LABS: BASO % 0.3 % (0.0-2.0); EOS % 0.2 % (0-4.0); GRAN # 11.7 (1.4-6.5); GRAN % 84.2 % (42.2-75.2); LYMPH # 1.1 (1.2-3.4); LYMPH % 7.5 % (20.0-51.0); MEAN CELL VOLUME 91 fl (80.0-100.0); MEAN CORPUSCULAR HGB CONC 31 g/dl (33.0-37.0); MEAN PLATELET VOLUME 10.5 fl (7.4-10.4); MONO % 7.4 % (1.7-9.3); PLATELET COUNT 156 K/mm3 (130-400); RED BLOOD COUNT 3.45 M/mm3 (4.20-5.60); REDCELL DISTRIBUTION WIDTH-CV 14.6 % (11.5-14.5)
[2021-01-17 07:14] LABS: HEMATOCRIT 31.5 % (42.0-52.0); HEMOGLOBIN 9.7 g/dl (13.5-18.0); MEAN CORPUSCULAR HEMOGLOBIN 28 pg (27.0-31.0)
[2021-01-17 07:19] LABS: CALCIUM 7.8 mg/dL (8.4-10.2); CREATININE, serum 2.52 (0.66-1.25); POTASSIUM 4.1 mmol/L (3.4-5.0)
--- NOTE | 2021-01-17 09:21 | NUR ---
SW attended clinical rounds. The patient's urine cultures are pending. SW followed up with the patient to discuss discharge plan. The patient lives 5 [place] of [place] with his , Merari (ph#[phone], c.ph#[phone]). He reports independence with ADLs and has a walker and canes. The patient's PCP is Dr. Davis Jo and he receives his medications from [facility] and on [address]. The patient's DPOA-HC is in EMR and it designates his and step children: Yrn Harrington and Farida. The patient plans to return home with his upon discharge. PT/OT have been ordered. SW contacted the patient's to review the above information. Merari reports no concerns with the patient returning home with her upon discharge. She states that she believes they have everything under control. SW to follow as needed. *Discharge plan: home with *
--- NOTE | 2021-01-17 10:05 | NUR ---
Assist patient with bedbath. Patient will hold off on oral care as he believes that his spouse is bringing in his toothbrush and toothpaste. Patient assisted into bathroom, voids, returns to room and sits in recliner. Patient denies additional needs at this time.
--- NOTE | 2021-01-17 11:38 | NUR ---
Sitting up in chair talking with and watching TV. Lunch arrives, assist patient in setting up. has turned on pain stimulator in back. Patient denies any pain or additional needs at this time.
--- NOTE | 2021-01-17 13:21 | NUR ---
Paige, at [facility], left CARL a message stating that the patient receives home health services through them. CARL met with the patient and his , Merari, to review this. Merari confirms that the patient has services through them and they would like to resume services upon discharge. CARL faxed updates to Paige at [facility]. *Discharge plan: home with and home health*
[2021-01-17] MEDS ORDERED: SINEMET 25/101 UDTAB PO (13:28)
[2021-01-17] MEDS ORDERED: MIRAPEX1.5 MG PO (13:38)
--- NOTE | 2021-01-17 15:27 | NUR ---
Patient was up to bathroom and has returned to chair. Gait slow and steady. Denies pain. in room with the patient. Voices no further needs at this time.
--- NOTE | 2021-01-17 18:06 | NUR ---
Patient done with dinner. has gone home for the evening. Patient denies need to use bathroom at this time. Would like to get back in bed. Assist patient into comfortable position in bed. Denies additional needs at this time.
[2021-01-18 01:29] VITALS: BP 139/55; PULSE 71; TEMP 98.3
[2021-01-18 03:53] VITALS: BP 124/44; PULSE 62; TEMP 98.5
--- NOTE | 2021-01-18 06:20 | NUR ---
NO NEW ISSUES NOTED OR REPORTED BY PATIENT.
[2021-01-18 06:41] LABS: CLOSTRIDIUM DIFF A/B NEG; CLOSTRIDIUM DIFF A/B INTERP NonToxigenic C.diff
[2021-01-18 06:42] LABS: ALBUMIN 3.1 gm/dL (3.5-5.0); BILIRUBIN,TOTAL 0.1 mg/dL (0.0-1.0); CALCIUM 7.9 mg/dL (8.4-10.2); CREATININE, serum 2.33 (0.66-1.25); POTASSIUM 4.1 mmol/L (3.4-5.0); TOTAL PROTEIN 5.9 gm/dL (6.4-8.2)
[2021-01-18 06:52] LABS: BASO % 0.3 % (0.0-2.0); EOS # 0.2 (0.0-0.7); EOS % 1.7 % (0-4.0); GRAN # 7.9 (1.4-6.5); GRAN % 80.9 % (42.2-75.2); LYMPH # 0.8 (1.2-3.4); LYMPH % 8.4 % (20.0-51.0); MEAN CELL VOLUME 89 fl (80.0-100.0); MEAN CORPUSCULAR HGB CONC 31 g/dl (33.0-37.0); MEAN PLATELET VOLUME 10.1 fl (7.4-10.4); MONO # 0.8 (0.1-0.6); MONO % 8.2 % (1.7-9.3); PLATELET COUNT 151 K/mm3 (130-400); RED BLOOD COUNT 3.48 M/mm3 (4.20-5.60); REDCELL DISTRIBUTION WIDTH-CV 14.5 % (11.5-14.5)
[2021-01-18 07:11] LABS: HEMOGLOBIN 9.7 g/dl (13.5-18.0); MEAN CORPUSCULAR HEMOGLOBIN 28 pg (27.0-31.0)
[2021-01-18 08:20] VITALS: BP 109/49; PULSE 63; TEMP 98.3
--- NOTE | 2021-01-18 08:40 | NUR ---
PT PLEASANT, AOX4, UNSTEADY WHEN TURNING WITH WALKER, STEADY WITH WALKER WHEN AMBULATING, IV FLUIDS INFUSING, MEDICATIONS GIVEN, PT ASSISTED TO CHAIR, CHAIR ALARM ON, FALL GOWN, BRACELET, AND SOCKS ON, PT DENIES PAIN/DISCOMFORT, LOOSE STOOL IN AM, NO OTHER NEEDS AT THIS TIME.
[2021-01-18] MEDS ORDERED: OMNICEF 300MG300 MG PO (11:02)
[2021-01-18 12:19] VITALS: BP 135/52; PULSE 61; TEMP 97.9
[2021-01-18] MEDS ORDERED: VANCOCIN H125 MG/CAP PO (13:46)
--- NOTE | 2021-01-18 15:03 | NUR ---
PT ESCORTED OUT VIA WHEELCHAIR, IV DC'D, TELE REMOVED, DISCHARGE EDUCATION PROVIDED. NO OTHER NEEDS.
== END 2021-01-18 14:45 | disposition home or self-care (01) | DRG 872 ==
LOC: COL.ER 07:42 → MEDICAL 09:35
PROVIDERS: Emergency Medicine; Family Medicine; Physician Assistant; Student in an Organized Health Care Education/Training Program; ADMIT Internal Medicine
DX: A41.9 Sepsis, unspecified organism (principal); N39.0 Urinary tract infection, site not specified; N17.9 Acute kidney failure, unspecified; A04.72 Enterocolitis due to Clostridium difficile, not specified as recurrent; J44.9 Chronic obstructive pulmonary disease, unspecified; E11.42 Type 2 diabetes mellitus with diabetic polyneuropathy; K21.9 Gastro-esophageal reflux disease without esophagitis; I48.91 Unspecified atrial fibrillation; E03.9 Hypothyroidism, unspecified; G20 Parkinson's disease; Z20.822 Contact with and (suspected) exposure to COVID-19; N18.9 Chronic kidney disease, unspecified; M54.9 Dorsalgia, unspecified; G89.29 Other chronic pain; Z95.0 Presence of cardiac pacemaker; Z79.82 Long term (current) use of aspirin; Z87.891 Personal history of nicotine dependence
CPT/HCPCS: 99222-AI; 99233-AI; 99239; J0696; J1644; J1815; J7030; Q9967

== ENCOUNTER 2021-02-12 16:10 | Inpatient (IN) | payer MEDICARE, OTHER ==
[~2021-02-12] VITALS: Ht 182.9 cm; Wt 90.0 kg
[~2021-02-12 16:10] MED LIST changes: +MIRAPEX1.5 MG PO; +PRESERVISION AREDS 2; +VANCOCIN H125 MG/CAP PO; +VITAMIN C500 MG PO
[2021-02-12 17:36] LABS: INR 1.2 (0.8-3.0); PROTHROMBIN TIME 13.8 SECONDS (9.7-12.8)
[2021-02-12 17:37] LABS: BASO % 0.2 % (0.0-2.0); EOS % 0.1 % (0-4.0); GRAN % 86.9 % (42.2-75.2); HEMOGLOBIN 11.3 g/dl (13.5-18.0); LYMPH # 0.8 (1.2-3.4); LYMPH % 4.1 % (20.0-51.0); MEAN CELL VOLUME 87 fl (80.0-100.0); MEAN CORPUSCULAR HEMOGLOBIN 28 pg (27.0-31.0); MEAN CORPUSCULAR HGB CONC 32 g/dl (33.0-37.0); MEAN PLATELET VOLUME 9.9 fl (7.4-10.4); MONO # 1.5 (0.1-0.6); MONO % 7.9 % (1.7-9.3); PLATELET COUNT 169 K/mm3 (130-400); RED BLOOD COUNT 4.03 M/mm3 (4.20-5.60)
[2021-02-12 17:39] LABS: HEMATOCRIT 35.2 % (42.0-52.0)
[2021-02-12 17:40] LABS: ALBUMIN 3.9 gm/dL (3.5-5.0); ALKALINE PHOSPHATASE 28 U/L (50-136); ANION GAP 7 mmol/L (7-16); AST,SGOT 23 U/L (15-37); BILIRUBIN,TOTAL 0.5 mg/dL (0.0-1.0); BLOOD UREA NITROGEN 54 mg/dL (9-20); C-REACTIVE PROTEIN 7.8 mg/dL (0.0-0.9); CALCIUM 8.6 mg/dL (8.4-10.2); CARBON DIOXIDE 27 mmol/L (22-30); CHLORIDE 100 mmol/L (98-107); CREATINE KINASE 73 U/L (55-170); CREATININE, serum 1.96 (0.66-1.25); GLUCOSE 128 mg/dL (74-106); LIPASE 24 U/L (23-300); POTASSIUM 5.1 mmol/L (3.4-5.0); SODIUM 133 mmol/L (137-145); TOTAL PROTEIN 7.2 gm/dL (6.4-8.2)
[2021-02-12 17:41] LABS: ALANINE AMINOTRANSFERASE < 4 U/L (4-49)
[2021-02-12 17:49] LABS: TROPONIN-I 0.015 ng/mL (0.000-0.035)
[2021-02-12 18:35] LABS: COLLECTION METHOD CATHETER
[2021-02-12 18:43] LABS: PH 5 (5-8); SQUAMOUS EPITHELIAL 0-2 /hpf; URINE APPEARANCE Cloudy; URINE BACTERIA Rare /hpf; URINE BILIRUBIN Negative (NEGATIVE); URINE BLOOD 1+ (NEGATIVE); URINE COLOR Yellow; URINE GLUCOSE Negative (NEGATIVE); URINE KETONE Negative (NEGATIVE); URINE LEUKOCYTE ESTERASE 3+ (NEGATIVE); URINE NITRATE Negative (NEGATIVE); URINE PROTEIN(semi-quant) 2+ (NEGATIVE); URINE RBC 20-50 /hpf; URINE UROBILINOGEN Negative (NEGATIVE)
[2021-02-12] MEDS ORDERED: LANOXIN 0.120.125 MG PO (20:30)
[2021-02-13 00:02] VITALS: BP 132/45; PULSE 74; TEMP 98.5
[2021-02-13 01:57] LABS: CALCIUM 8.5 mg/dL (8.4-10.2); CREATININE, serum 1.96 (0.66-1.25); POTASSIUM 4.9 mmol/L (3.4-5.0)
[2021-02-13 03:31] VITALS: BP 139/44; PULSE 79; TEMP 99.2
[2021-02-13 06:02] LABS: BASO % 0.3 % (0.0-2.0); EOS % 0.1 % (0-4.0); GRAN # 13.2 (1.4-6.5); GRAN % 86.8 % (42.2-75.2); HEMOGLOBIN 10.6 g/dl (13.5-18.0); LYMPH # 0.7 (1.2-3.4); LYMPH % 4.7 % (20.0-51.0); MEAN CELL VOLUME 86 fl (80.0-100.0); MEAN CORPUSCULAR HEMOGLOBIN 28 pg (27.0-31.0); MEAN CORPUSCULAR HGB CONC 32 g/dl (33.0-37.0); MEAN PLATELET VOLUME 10.4 fl (7.4-10.4); MONO # 1.2 (0.1-0.6); MONO % 7.6 % (1.7-9.3); PLATELET COUNT 155 K/mm3 (130-400); RED BLOOD COUNT 3.86 M/mm3 (4.20-5.60)
[2021-02-13 06:06] LABS: HEMATOCRIT 33.3 % (42.0-52.0)
[2021-02-13 06:10] LABS: CALCIUM 7.9 mg/dL (8.4-10.2); CREATININE, serum 2.04 (0.66-1.25); POTASSIUM 4.4 mmol/L (3.4-5.0)
[2021-02-13 08:34] VITALS: BP 103/44; PULSE 66; TEMP 98
[2021-02-13 12:03] VITALS: BP 124/93; PULSE 64; TEMP 97.8
[2021-02-13 16:00] VITALS: BP 159/68; PULSE 79; TEMP 97.8
[2021-02-13 19:39] VITALS: BP 175/56; PULSE 79; TEMP 98.3
[2021-02-14] VITALS (8 sets, daily range): BP systolic 126–189; BP diastolic 44–61; PULSE 59–75; TEMP 97.5–99.5
[2021-02-14 08:19] LABS: CALCIUM 7.9 mg/dL (8.4-10.2); CREATININE, serum 2.32 (0.66-1.25); POTASSIUM 4.3 mmol/L (3.4-5.0)
[2021-02-14 08:29] LABS: BASO % 0.3 % (0.0-2.0); EOS # 0.1 (0.0-0.7); EOS % 1.1 % (0-4.0); GRAN # 9.3 (1.4-6.5); GRAN % 82.9 % (42.2-75.2); LYMPH # 0.8 (1.2-3.4); MEAN CELL VOLUME 88 fl (80.0-100.0); MEAN CORPUSCULAR HGB CONC 32 g/dl (33.0-37.0); MONO # 0.9 (0.1-0.6); MONO % 8.3 % (1.7-9.3); PLATELET COUNT 135 K/mm3 (130-400); RED BLOOD COUNT 3.49 M/mm3 (4.20-5.60)
[2021-02-14 08:39] LABS: HEMATOCRIT 30.7 % (42.0-52.0); HEMOGLOBIN 9.9 g/dl (13.5-18.0); MEAN CORPUSCULAR HEMOGLOBIN 28 pg (27.0-31.0)
[2021-02-15 04:11] VITALS: BP 140/44; PULSE 66; TEMP 98.1
[2021-02-15 07:50] LABS: BASO % 0.4 % (0.0-2.0); EOS # 0.3 (0.0-0.7); EOS % 3.1 % (0-4.0); GRAN # 6.6 (1.4-6.5); GRAN % 78.8 % (42.2-75.2); HEMOGLOBIN 10.1 g/dl (13.5-18.0); LYMPH # 0.6 (1.2-3.4); LYMPH % 7.6 % (20.0-51.0); MEAN CELL VOLUME 88 fl (80.0-100.0); MEAN CORPUSCULAR HEMOGLOBIN 28 pg (27.0-31.0); MEAN CORPUSCULAR HGB CONC 32 g/dl (33.0-37.0); MEAN PLATELET VOLUME 10.5 fl (7.4-10.4); MONO # 0.8 (0.1-0.6); MONO % 9.7 % (1.7-9.3); PLATELET COUNT 160 K/mm3 (130-400); RED BLOOD COUNT 3.61 M/mm3 (4.20-5.60); REDCELL DISTRIBUTION WIDTH-CV 14.6 % (11.5-14.5)
[2021-02-15 07:51] LABS: HEMATOCRIT 31.7 % (42.0-52.0)
[2021-02-15 08:02] LABS: CALCIUM 8.3 mg/dL (8.4-10.2); CREATININE, serum 1.93 (0.66-1.25); POTASSIUM 4.2 mmol/L (3.4-5.0)
[2021-02-15 08:24] VITALS: BP 98/42; PULSE 59; TEMP 97
[2021-02-15] MEDS ORDERED: NOVOLOG 100U100 U/M1 SQ (09:25)
[2021-02-15] MEDS ORDERED: OMNICEF 300MG300 MG PO ×2 (09:27→09:35)
[2021-02-15 09:55] VITALS: BP 118/46
[2021-02-15 10:02] VITALS: BP 118/46; PULSE 59; TEMP 97
== END 2021-02-15 11:00 | DRG 871 ==
LOC: COL.ER 16:10 → MEDICAL 18:53
PROVIDERS: Emergency Medicine; Nurse Practitioner Family; Physician Assistant; ADMIT Hospitalist
DX: A41.9 Sepsis, unspecified organism (principal); G93.41 Metabolic encephalopathy; N39.0 Urinary tract infection, site not specified; A04.71 Enterocolitis due to Clostridium difficile, recurrent; N17.9 Acute kidney failure, unspecified; E87.1 Hypo-osmolality and hyponatremia; N18.9 Chronic kidney disease, unspecified; D64.9 Anemia, unspecified; J44.9 Chronic obstructive pulmonary disease, unspecified; E03.9 Hypothyroidism, unspecified; G89.29 Other chronic pain; M54.9 Dorsalgia, unspecified; E11.40 Type 2 diabetes mellitus with diabetic neuropathy, unspecified; E87.5 Hyperkalemia; E11.22 Type 2 diabetes mellitus with diabetic chronic kidney disease; Z20.822 Contact with and (suspected) exposure to COVID-19; K21.9 Gastro-esophageal reflux disease without esophagitis; I48.91 Unspecified atrial fibrillation; G20 Parkinson's disease; Z95.0 Presence of cardiac pacemaker; Z86.718 Personal history of other venous thrombosis and embolism; Z87.891 Personal history of nicotine dependence; Z85.51 Personal history of malignant neoplasm of bladder
CPT/HCPCS: 99223-AI; 99232-AI; 99239; J0696; J1650; J7030

== ENCOUNTER 2021-06-29 19:01 | Inpatient (IN) | payer MEDICARE, OTHER ==
[~2021-06-29] VITALS: Ht 182.9 cm; Wt 79.5 kg
[~2021-06-29 19:01] MED LIST changes: +LANOXIN 0.120.125 MG PO; +NOVOLOG 100U100 U/M1 SQ
[2021-06-29] MEDS ORDERED: LANTUS100 U/ML SQ (19:31)
[2021-06-29] MEDS ORDERED: ARICEPT 5MG PO (19:34)
[2021-06-29 19:35] LABS: BASO % 0.2 % (0.0-2.0); EOS % 0.1 % (0-4.0); GRAN # 8.7 (1.4-6.5); HEMOGLOBIN 11.9 g/dl (13.5-18.0); LYMPH # 0.3 (1.2-3.4); LYMPH % 3.5 % (20.0-51.0); MEAN CELL VOLUME 90 fl (80.0-100.0); MEAN CORPUSCULAR HEMOGLOBIN 29 pg (27.0-31.0); MEAN CORPUSCULAR HGB CONC 33 g/dl (33.0-37.0); MEAN PLATELET VOLUME 10.1 fl (7.4-10.4); MONO # 0.7 (0.1-0.6); MONO % 6.8 % (1.7-9.3); PLATELET COUNT 157 K/mm3 (130-400); RED BLOOD COUNT 4.06 M/mm3 (4.20-5.60); REDCELL DISTRIBUTION WIDTH-CV 14.4 % (11.5-14.5)
[2021-06-29] MEDS ORDERED: MELATONIN5 M1 SL (19:35)
[2021-06-29 19:36] LABS: HEMATOCRIT 36.4 % (42.0-52.0)
[2021-06-29 19:50] LABS: ALBUMIN 3.5 gm/dL (3.4-4.8); ALKALINE PHOSPHATASE 35 U/L (0-750); ANION GAP 10 mmol/L; AST,SGOT 27 U/L (5-34); BILIRUBIN,TOTAL 0.5 mg/dL (0.2-1.2); BLOOD UREA NITROGEN 51 mg/dL (8-26); CALCIUM 8.6 mg/dL (8.4-10.2); CARBON DIOXIDE 22 mEq/L (23-31); CHLORIDE 104 mmol/L (98-107); CREATINE KINASE 1048 U/L (30-200); CREATININE, serum 2.52 mg/dL (0.72-1.25); GLUCOSE 184 mg/dL (70-99); POTASSIUM 4.8 mmol/L (3.5-4.5); SODIUM 136 mmol/L (136-145); TOTAL PROTEIN 6.8 gm/dL (6.2-8.1)
[2021-06-29 19:51] LABS: ALANINE AMINOTRANSFERASE < 6 U/L (0-55)
[2021-06-29 20:09] LABS: TROPONIN-I 0.093 ng/mL (0.00-0.033)
[2021-06-30] VITALS (10 sets, daily range): BP systolic 110–206; BP diastolic 30–86; PULSE 61–98; TEMP 97.3–98.7
--- NOTE | 2021-06-30 00:20 | NUR ---
PATIENT WAS BROUGHT FROM ED ON A WHEELCHAIR.PATIENT IS ALERT.PATIENT'S IS IN THE ROOM.WAS CLEARED TO STAY OVERNIGHT.DENIES PAIN.SAFETY MEASURES IN PLACE.NO OTHER NEEDSA T THIS TIME.
[2021-06-30] MEDS ORDERED: LANTUS SOLOS100 U/ML SQ (01:12)
[2021-06-30 01:57] LABS: COLLECTION METHOD CLEAN CATCH
[2021-06-30 02:05] LABS: MUCOUS Present /lpf; PH 5 (5-8); SQUAMOUS EPITHELIAL None Seen /hpf; URINE APPEARANCE Cloudy; URINE BACTERIA Rare /hpf; URINE BILIRUBIN Negative (NEGATIVE); URINE BLOOD 3+ (NEGATIVE); URINE COLOR Yellow; URINE GLUCOSE Negative (NEGATIVE); URINE KETONE Negative (NEGATIVE); URINE LEUKOCYTE ESTERASE 3+ (NEGATIVE); URINE NITRATE Negative (NEGATIVE); URINE PROTEIN(semi-quant) 2+ (NEGATIVE); URINE UROBILINOGEN Negative (NEGATIVE)
--- NOTE | 2021-06-30 02:21 | NUR ---
NIGHT PROVIDER INFORMED ABOUT CRITICAL LAB TROPONIN.
--- NOTE | 2021-06-30 03:36 | NUR ---
20G IV placed to left wrist by this nurse x1 attempt. Flushes well.
[2021-06-30 04:20] LABS: INR 1.2 (0.8-3.0); PROTHROMBIN TIME 13.2 SECONDS (9.7-12.8)
[2021-06-30 04:23] LABS: PARTIAL THROMBOPLASTIN TIME 28.3 SECONDS (26.0-37.0)
--- NOTE | 2021-06-30 04:38 | NUR ---
PATIENT IS CALM IN THE ROOM.PATIENT IS ON IVF NS AT 125/HR AND IV HEPARIN AT 9.5ML/HR.PATIENT DENIES PAIN.SAFEY MEASURES IN PLACE.NO OTHER NEEDS AT THIS TIME.
--- NOTE | 2021-06-30 07:04 | NUR ---
CARDIOLOGU PAGER NOT GOING THROUGH.CARDIOLOGY CLINIC OPENING AT 8AM
[2021-06-30 07:08] LABS: BASO % 0.4 % (0.0-2.0); EOS % 0.4 % (0-4.0); GRAN # 7.3 (1.4-6.5); GRAN % 79.2 % (42.2-75.2); HEMOGLOBIN 11.1 g/dl (13.5-18.0); LYMPH # 0.8 (1.2-3.4); LYMPH % 8.5 % (20.0-51.0); MEAN CELL VOLUME 90 fl (80.0-100.0); MEAN CORPUSCULAR HEMOGLOBIN 30 pg (27.0-31.0); MEAN CORPUSCULAR HGB CONC 33 g/dl (33.0-37.0); MEAN PLATELET VOLUME 9.8 fl (7.4-10.4); MONO % 11.2 % (1.7-9.3); PLATELET COUNT 131 K/mm3 (130-400); RED BLOOD COUNT 3.72 M/mm3 (4.20-5.60); REDCELL DISTRIBUTION WIDTH-CV 14.6 % (11.5-14.5)
--- NOTE | 2021-06-30 07:09 | NUR ---
REPORT RECEIVED FROM MARY OCHOA. PT ASLEEP IN BED. BREATHING REG/UNLABORED. CALL CEE IN REACH. ON COUCH IN ROOM
[2021-06-30 07:13] LABS: HEMATOCRIT 33.3 % (42.0-52.0)
[2021-06-30 07:48] LABS: CALCIUM 7.9 mg/dL (8.4-10.2); CREATININE, serum 2.13 mg/dL (0.72-1.25); POTASSIUM 4.1 mmol/L (3.5-4.5)
--- NOTE | 2021-06-30 10:10 | NUR ---
Initial visit; Patient thanked Mycologist for stopping and offering spiritual care, especially God's blessings.
--- NOTE | 2021-06-30 11:38 | NUR ---
HEP XA 0.23. INCREASE BY 150 UNITS/HR, 1.5ML/HR TO RUN AT 11ML/HR
--- NOTE | 2021-06-30 17:27 | NUR ---
PT HAD UNEVENTFUL SHIFT. IN ROOM WITH PATIENT. PT DENIES PAIN. SITTING ON SIDE OF BED EATING DINNER. NO NEEDS AT THIS TIME. CALL CEE IN REACH.
--- NOTE | 2021-06-30 19:41 | NUR ---
NOTIFIED OF PT BLOOD PRESSURE ELEVATED IN 200S. RECHECKED MANUALLY AT THIS TIME, 200/86. NOTIFIED KHADIJAH FLAHERTY OF NEED FOR PRN BLOOD PRESSURE MEDICATION.
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
--- NOTE | 2021-07-01 00:02 | NUR ---
PT HAD ONE BOUT OF INCONTINENCE. PT ABLE TO AMBULATE TO RESTROOM. FULL LINEN CHANGE PROVIDED.
--- NOTE | 2021-07-01 02:38 | NUR ---
PT AMBULATED TO RESTROOM, FALL PRECAUTIONS OBSERVED. WALKER UTILIZED. PT TOLERATED ACTIVITY WELL. PT PILLOW PLACED UNDER LEFT HIP.
[2021-07-01 03:33] VITALS: BP 150/54; PULSE 59; TEMP 98.8
--- NOTE | 2021-07-01 03:33 | NUR ---
Pt tachypnic, denies dizziness or SOA.
--- NOTE | 2021-07-01 05:03 | NUR ---
PT AMBULATED TO BATHROOM. TOLERATED ACTIVITY WELL. PT PILLOW PLACED UNDER RIGHT HIP.
--- NOTE | 2021-07-01 05:04 | NUR ---
PT CONTINUING ON PLAN OF CARE. PT NEURO CHECKS WITHIN DEFINED LIMITS. PT ALERT, ABLE TO ANSWER ORIENTATION QUESTIONS. INTERMITTENT CONFUSION NOTED IN CONVERSATION. PT REORIENTED TO BEST OF ABILITY. PT FALL PRECAUTIONS OBSERVED WITH AMBULATION. 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 PT BLOOD PRESSURE ELEVATED, MANAGED WITH PRN MEDICATION PER ORDERS. PT FREE FROM INJURY THIS SHIFT.
[2021-07-01 05:55] VITALS: BP 148/53
[2021-07-01 06:43] LABS: BASO % 0.4 % (0.0-2.0); EOS # 0.1 (0.0-0.7); EOS % 1.6 % (0-4.0); GRAN # 5.7 (1.4-6.5); GRAN % 77.2 % (42.2-75.2); HEMOGLOBIN 10.3 g/dl (13.5-18.0); LYMPH # 0.7 (1.2-3.4); LYMPH % 9.6 % (20.0-51.0); MEAN CELL VOLUME 93 fl (80.0-100.0); MEAN CORPUSCULAR HEMOGLOBIN 29 pg (27.0-31.0); MEAN CORPUSCULAR HGB CONC 32 g/dl (33.0-37.0); MEAN PLATELET VOLUME 10.7 fl (7.4-10.4); MONO # 0.8 (0.1-0.6); MONO % 10.8 % (1.7-9.3); PLATELET COUNT 134 K/mm3 (130-400); REDCELL DISTRIBUTION WIDTH-CV 14.6 % (11.5-14.5)
[2021-07-01 06:49] LABS: HEMATOCRIT 32.4 % (42.0-52.0)
[2021-07-01 07:23] LABS: CALCIUM 7.7 mg/dL (8.4-10.2); CREATININE, serum 1.82 mg/dL (0.72-1.25)
[2021-07-01 08:00] VITALS: BP 109/60; PULSE 60; TEMP 98.2
[2021-07-01] MEDS ORDERED: OMNICEF 300MG300 MG PO (10:16)
--- NOTE | 2021-07-01 10:50 | NUR ---
SW met with patient at b/s to discuss d/c plan. Pt lives with his , Merari, in a home near [place]. Patient reports he is indep at home but has a cane, walker, and a built in chair in his shower if needed. Patient states he was receiving p/t and o/t from [facility] in [place] prior to this event. His MPOA is his Merari, . His PCP is Dr. Piper *D/C plan: discharge home
--- NOTE | 2021-07-01 12:30 | NUR ---
First visit from the candle molder. No needs right now.
--- NOTE | 2021-07-01 13:53 | NUR ---
Patient discharged. This RN assisted the with dressing the patient. Patient's BS was WNL and did not require insulin.
== END 2021-07-01 13:00 | disposition home or self-care (01) | DRG 682 ==
LOC: COL.ER 19:01 → MEDICAL 22:37
PROVIDERS: Emergency Medicine; Nurse Practitioner Family; Physician Assistant; ADMIT Internal Medicine
DX: N17.9 Acute kidney failure, unspecified (principal); I21.A1 Myocardial infarction type 2; N39.0 Urinary tract infection, site not specified; M62.82 Rhabdomyolysis; L03.116 Cellulitis of left lower limb; I16.1 Hypertensive emergency; G20 Parkinson's disease; I48.91 Unspecified atrial fibrillation; Z95.0 Presence of cardiac pacemaker; E87.5 Hyperkalemia; E11.22 Type 2 diabetes mellitus with diabetic chronic kidney disease; N18.9 Chronic kidney disease, unspecified; E11.40 Type 2 diabetes mellitus with diabetic neuropathy, unspecified; E03.9 Hypothyroidism, unspecified; D64.9 Anemia, unspecified; Z85.51 Personal history of malignant neoplasm of bladder; G89.29 Other chronic pain; M54.9 Dorsalgia, unspecified; J44.9 Chronic obstructive pulmonary disease, unspecified; K21.9 Gastro-esophageal reflux disease without esophagitis; E11.51 Type 2 diabetes mellitus with diabetic peripheral angiopathy without gangrene; Z86.718 Personal history of other venous thrombosis and embolism; Z79.4 Long term (current) use of insulin; Z87.891 Personal history of nicotine dependence; E11.649 Type 2 diabetes mellitus with hypoglycemia without coma; S09.90XA Unspecified injury of head, initial encounter
CPT/HCPCS: 99222-AI; 99239; J0360; J0696; J1644; J1650; J1815; J7030

== ENCOUNTER 2021-07-05 20:12 | Emergency (ER) | payer MEDICARE, OTHER ==
[~2021-07-05] VITALS: Ht 182.9 cm; Wt 84.1 kg
[~2021-07-05 20:12] MED LIST changes: +ARICEPT 5MG PO; +LANTUS100 U/ML SQ; +MELATONIN5 M1 SL
[2021-07-05 22:27] VITALS: BP 127/86; PULSE 86; TEMP 98.6
== END 2021-07-06 04:26 | disposition home or self-care (01) ==
LOC: COL.ER 20:12
DX: S60.812A Abrasion of left wrist, initial encounter (principal); E11.22 Type 2 diabetes mellitus with diabetic chronic kidney disease; N18.9 Chronic kidney disease, unspecified; J44.9 Chronic obstructive pulmonary disease, unspecified; E11.40 Type 2 diabetes mellitus with diabetic neuropathy, unspecified; G89.29 Other chronic pain; M54.9 Dorsalgia, unspecified; I48.91 Unspecified atrial fibrillation; E03.9 Hypothyroidism, unspecified; G20 Parkinson's disease; Z79.890 Hormone replacement therapy; Z79.899 Other long term (current) drug therapy; W01.0XXA Fall on same level from slipping, tripping and stumbling without subsequent striking against object, initial encounter

== ENCOUNTER 2021-08-21 11:18 | Observation (INO) | payer MEDICARE, OTHER ==
[~2021-08-21] VITALS: Ht 182.9 cm; Wt 79.4 kg
[2021-08-21] VITALS (69 sets, daily range): BP systolic 116–198; BP diastolic 47–91; PULSE 58–71; TEMP 97.3–98; O2SAT 75–100
[2021-08-21 15:44] LABS: BASO % 0.5 % (0.0-2.0); EOS # 0.3 K/mm3 (0.0-0.7); EOS % 3.8 % (0-4.0); GRAN % 77.3 % (42.2-75.2); HEMATOCRIT 39.8 % (42.0-52.0); HEMOGLOBIN 13.1 g/dl (13.5-18.0); LYMPH # 0.9 K/mm3 (1.2-3.4); LYMPH % 11.4 % (20.0-51.0); MEAN CELL VOLUME 91 fl (80.0-100.0); MEAN CORPUSCULAR HEMOGLOBIN 30 pg (27.0-31.0); MEAN CORPUSCULAR HGB CONC 33 g/dl (33.0-37.0); MEAN PLATELET VOLUME 10.3 fl (7.4-10.4); MONO # 0.5 K/mm3 (0.1-0.6); MONO % 6.6 % (1.7-9.3); PLATELET COUNT 171 K/mm3 (130-400); REDCELL DISTRIBUTION WIDTH-CV 14.1 % (11.5-14.5)
[2021-08-21 16:04] LABS: ALBUMIN 4.2 gm/dL (3.4-4.8); ALKALINE PHOSPHATASE 34 U/L (40-150); ANION GAP 9 mmol/L (7-16); AST,SGOT 20 U/L (5-34); BILIRUBIN,TOTAL 0.3 mg/dL (0.2-1.2); BLOOD UREA NITROGEN 41 mg/dL (8-26); CALCIUM 9.1 mg/dL (8.4-10.2); CARBON DIOXIDE 25 mmol/L (23-31); CHLORIDE 106 mmol/L (98-107); CREATININE, serum 1.91 mg/dL (0.72-1.25); GLUCOSE 160 mg/dL (70-99); POTASSIUM 4.6 mmol/L (3.5-4.5); SODIUM 140 mmol/L (136-145); TOTAL PROTEIN 7.6 gm/dL (6.2-8.1)
[2021-08-21 16:05] LABS: ALANINE AMINOTRANSFERASE < 6 U/L (0-55)
[2021-08-21 16:14] LABS: INR 1.1 (0.8-3.0); PROTHROMBIN TIME 11.8 SECONDS (9.7-12.8)
--- NOTE | 2021-08-21 17:30 | NUR ---
PT ARRIVED TO THE FLOOR AT 1730. ADMISSION ASSESSMENT COMPLETE AND BEING CALLED FOR MED REC. PT IS ALERT AND ORIENTED AND VITAL SIGNS ARE STABLE. PT WAS SHOWN HOW TO WORK THE PHONE AND ORDER DINNER. PT DOES NOT COMPLAIN OF ANY PAIN OR N/V. PT HAS NO OTHER NEEDS AT THIS TIME. CALL LIGHT WITHIN REACH.
--- NOTE | 2021-08-21 18:33 | NUR ---
NOTIFIED OF HYPERTENSION. SEE NEW ORDERS, HOSPITALIST CONSULTED.
[2021-08-21 21:04] LABS: COLLECTION METHOD CLEAN CATCH
[2021-08-21 21:12] LABS: PH 7 (5-8); SQUAMOUS EPITHELIAL None Seen /hpf (0-10); URINE APPEARANCE Clear (CLEAR/HAZY); URINE BACTERIA Rare (NONE SEEN); URINE BILIRUBIN Negative (NEGATIVE); URINE BLOOD Negative (NEGATIVE); URINE COLOR Straw (YELLOW); URINE GLUCOSE 2+ (NEGATIVE); URINE KETONE Negative (NEGATIVE); URINE LEUKOCYTE ESTERASE Negative (NEGATIVE); URINE NITRATE Negative (NEGATIVE); URINE PROTEIN(semi-quant) Negative (NEGATIVE); URINE UROBILINOGEN Negative (NEGATIVE)
--- NOTE | 2021-08-21 22:30 | NUR ---
PT TRANSFERRED TO ICU 5 AT 2130. TRANSFERRED SELF FROM CART TO BED. HYPERTENSIVE 190'S/90'S ON ARRIVAL. CARDENE GTT INITIATED. PT A/O X4. EQUAL STRENGTH NOTED IN ALL EXTREMITIES. PERRLA. UPDATED ON STATUS AND HOME MEDICATIONS REVEIWED. CALL LIGHT WITHIN REACH.
[2021-08-21] MEDS ORDERED: LANTUS100 U/ML SQ ×2 (22:31)
--- NOTE | 2021-08-21 23:50 | NUR ---
1899- REPORT GIVEN TO THIS NURSE BY DAY SHIFT STAFF. PT IS A&O X3, EATING DINNER IN BED. PT HAS LACERATION ON BACK OF HEAD WITH 3 INTACT KATJA ET SCANT AMOUNT OF DRIED BLOOD. NO ACTIVE BLEEDING SEEN. BLOOD PRESSURE IS ELEVATED, IS BEING CHECKED Q 15 MINUTES. PT DENIES ANY PAIN, DIZZINESS, CHEST PAIN OR SOB. IVF INFUSING INTO PERIPHERAL IV. RESPIRATIONS ARE UNLABORED. 1944- ARaul AZEVEDO APRN CALLED ET NOTIFED OF PT'S BP AFTER LABETALOL ADMINISTRATION. NO NEW ORDERS @ THIS TIME. 2019- ARaul AZEVEDO APRN CALLED ET NOTIFIED OF PT BP, STATES THAT SHE WILL CALL THIS NURSE BACK. 2039- ARaul AZEVEDO APRN CALLS THIS NURSE BACK, NOTIFIED OF CURRENT BP ET CONDITION. PT REMAINS A&O X3, DENIES ANY PAIN OR DIZZINESS. PT WILL BE MOVED FROM SURGICAL FLOOR TO ICU. PT EDUCATED BY THIS NURSE ON PLAN OF CARE, VEBALIZES UNDERSTNADING. PT STATES THAT UNLESS SOMETHING HAPPENS TO HIM, HIS CAN BE INFORMED OF HIS STATUS ET UNIT CHANGE IN MORNING. PT STATES THAT HE DOESN'T WANT HIS TO WORRY. 2121- BLASTER HELPER HERE TO TRANSPORT PT TO ICU. REPORT CALLED ET GIVEN TO BASILIA.
[2021-08-22] VITALS (376 sets, daily range): BP systolic 113–153; BP diastolic 50–66; PULSE 53–59; TEMP 97.3–99; O2SAT 88–100
--- NOTE | 2021-08-22 06:32 | NUR ---
PT A/O X4. NEURO CHECKS REMAIN UNCHANGED. PT DENIES PAIN. CARDENE GTT OFF AT THIS TIME. BP 127/55. PT RESTING IN BED. CALL LIGHT WITHIN REACH.
[2021-08-22 06:38] LABS: BASO # 0.1 K/mm3 (0.0-0.2); BASO % 0.7 % (0.0-2.0); EOS # 0.3 K/mm3 (0.0-0.7); EOS % 2.9 % (0-4.0); GRAN # 6.9 K/mm3 (1.4-6.5); GRAN % 78.3 % (42.2-75.2); HEMATOCRIT 35.6 % (42.0-52.0); HEMOGLOBIN 11.9 g/dl (13.5-18.0); LYMPH % 11.5 % (20.0-51.0); MEAN CELL VOLUME 88 fl (80.0-100.0); MEAN CORPUSCULAR HEMOGLOBIN 30 pg (27.0-31.0); MEAN CORPUSCULAR HGB CONC 33 g/dl (33.0-37.0); MEAN PLATELET VOLUME 10.7 fl (7.4-10.4); MONO # 0.6 K/mm3 (0.1-0.6); MONO % 6.3 % (1.7-9.3); PLATELET COUNT 161 K/mm3 (130-400); RED BLOOD COUNT 4.03 M/mm3 (4.20-5.60); REDCELL DISTRIBUTION WIDTH-CV 14.1 % (11.5-14.5)
[2021-08-22 07:02] LABS: ALBUMIN 3.5 gm/dL (3.4-4.8); BILIRUBIN,TOTAL 0.4 mg/dL (0.2-1.2); CALCIUM 8.7 mg/dL (8.4-10.2); CREATININE, serum 1.56 mg/dL (0.72-1.25); POTASSIUM 4.1 mmol/L (3.5-4.5); TOTAL PROTEIN 6.1 gm/dL (6.2-8.1)
[2021-08-22 07:29] LABS: MAGNESIUM 1.9 mg/dL (1.6-2.6)
[2021-08-22 07:37] LABS: TROPONIN-I 6 HR POST INITIAL 0.025 ng/mL (0.00-0.033)
--- NOTE | 2021-08-22 08:30 | NUR ---
Awake and alert resting in bed; Neuro checks WNL. Ate 100% of breakfast tray. Call light left within reach; will continue to monitor.
--- NOTE | 2021-08-22 11:15 | NUR ---
Transfered off unit via wheelchair for a head CT. Alert and oriented and in no distress upon transfer.
--- NOTE | 2021-08-22 11:54 | NUR ---
day care worker met with patient at bedside. Patient reports that he lives at home in [place] with his Merari. Patient reports that at home he is fully independent with his activities of daily living and that he utilizes both a cane and a walker to assist with mobility. Patient reports to no O2 needs at home. PCP is Dr. Piper and he utilizes both [facility] for medication needs. Patient reports that he does have a DPOA-HC established and that is agent is his agent. PT/OT eval requested.
--- NOTE | 2021-08-22 12:29 | NUR ---
PT/OT cancelled. Patient is receiving HH PT currently.
--- NOTE | 2021-08-22 13:00 | NUR ---
Discussed plan of care with Dr. Miranda. head CT shows no changes. However, systolic BP has been 140-150's. Hospitalist would like systolic less than 140. Will give additional 2.5 dose of norvasc and monitor for effectiveness before allowing to go home.
--- NOTE | 2021-08-22 13:30 | NUR ---
Discussed plan of care with hospitalist. BP continues to be somewhat labile. Running 110-150. Will continue with new prescription for 5 mg of norvasc. Will make a follow up appt with pcp upon discharge.
[2021-08-22] MEDS ORDERED: NORVASC 5MG5 MG/TAB PO (14:41)
--- NOTE | 2021-08-22 14:59 | NUR ---
Discussed plan of care with Dr. Rubio; ang to discharge patient at this time.
--- NOTE | 2021-08-22 15:55 | NUR ---
Patient discharged from unit. Transfered via wheelchair to ER with present. Alert and oriented and in no distress upon discharge.
== END 2021-08-22 15:55 | disposition home or self-care (01) ==
LOC: COL.ER 11:18 → SURG 15:27 → ICU 15:27
PROVIDERS: Internal Medicine; Nurse Practitioner Family; Physician Assistant; ADMIT Surgery
DX: S06.309A Unspecified focal traumatic brain injury with loss of consciousness of unspecified duration, initial encounter (principal); S01.01XA Laceration without foreign body of scalp, initial encounter; I48.91 Unspecified atrial fibrillation; J44.9 Chronic obstructive pulmonary disease, unspecified; E11.9 Type 2 diabetes mellitus without complications; E11.40 Type 2 diabetes mellitus with diabetic neuropathy, unspecified; N18.9 Chronic kidney disease, unspecified; I16.0 Hypertensive urgency; E11.22 Type 2 diabetes mellitus with diabetic chronic kidney disease; G20 Parkinson's disease; E03.9 Hypothyroidism, unspecified; E87.5 Hyperkalemia; D64.9 Anemia, unspecified; K21.9 Gastro-esophageal reflux disease without esophagitis; N39.0 Urinary tract infection, site not specified; G89.29 Other chronic pain; M54.9 Dorsalgia, unspecified; I73.9 Peripheral vascular disease, unspecified; Z86.718 Personal history of other venous thrombosis and embolism; Z79.84 Long term (current) use of oral hypoglycemic drugs; Z85.51 Personal history of malignant neoplasm of bladder; Z79.82 Long term (current) use of aspirin; Z79.890 Hormone replacement therapy; Z87.891 Personal history of nicotine dependence
CPT/HCPCS: 99222; 99223; 99233-AI; G0378; J0360; J1815; J7030; J7050

== ENCOUNTER → 2021-09-18 | Outpatient (CLI) | payer MEDICARE, OTHER ==
[~2021-09-18] MED LIST changes: +NORVASC 5MG5 MG/TAB PO
== END ==
LOC: COL.RAD 14:24
DX: G20 Parkinson's disease (principal); I62.9 Nontraumatic intracranial hemorrhage, unspecified

== ENCOUNTER 2021-11-02 13:35 | Inpatient (IN) | payer MEDICARE, OTHER ==
[~2021-11-02] VITALS: Ht 182.9 cm; Wt 77.3 kg
[2021-11-02 14:32] LABS: BASO % 0.2 % (0.0-2.0); EOS # 0.1 K/mm3 (0.0-0.7); EOS % 0.3 % (0.0-4.0); GRAN # 16.9 K/mm3 (1.4-6.5); GRAN % 88.2 % (42.2-75.2); HEMOGLOBIN 10.9 g/dl (13.5-18.0); LYMPH # 0.7 K/mm3 (1.2-3.4); LYMPH % 3.8 % (20.0-51.0); MEAN CELL VOLUME 87 fl (80.0-100.0); MEAN CORPUSCULAR HEMOGLOBIN 29 pg (27-31); MEAN CORPUSCULAR HGB CONC 33 g/dl (33.0-37.0); MEAN PLATELET VOLUME 9.8 fl (7.4-10.4); MONO # 1.4 K/mm3 (0.1-0.6); PLATELET COUNT 193 K/mm3 (130-400); RED BLOOD COUNT 3.81 M/mm3 (4.20-5.60); REDCELL DISTRIBUTION WIDTH-CV 13.8 % (11.5-14.5)
[2021-11-02 14:54] LABS: ALBUMIN 3.2 gm/dL (3.4-4.8); BILIRUBIN,TOTAL 0.6 mg/dL (0.2-1.2); CALCIUM 8.4 mg/dL (8.4-10.2); CREATININE, serum 2.7 mg/dL (0.72-1.25); POTASSIUM 5.1 mmol/L (3.5-4.5); TOTAL PROTEIN 6.2 gm/dL (6.2-8.1)
[2021-11-02 15:00] LABS: TROPONIN-I 0.033 ng/mL (0.00-0.033)
[2021-11-02 15:38] LABS: COLLECTION METHOD CATHETER
[2021-11-02 15:59] LABS: MUCOUS Present (NOT PRESENT); PH 5 (5-8); SQUAMOUS EPITHELIAL 0-2 /hpf (0-10); URINE APPEARANCE Cloudy (CLEAR/HAZY); URINE BACTERIA Many /hpf (NONE SEEN); URINE BILIRUBIN Negative (NEGATIVE); URINE BLOOD 3+ (NEGATIVE); URINE COLOR Yellow (YELLOW); URINE GLUCOSE Negative (NEGATIVE); URINE KETONE Trace (NEGATIVE); URINE LEUKOCYTE ESTERASE 3+ (NEGATIVE); URINE NITRATE Negative (NEGATIVE); URINE PROTEIN(semi-quant) 2+ (NEGATIVE); URINE RBC >50 /hpf (0-2); URINE UROBILINOGEN Negative (NEGATIVE)
[2021-11-02] MEDS ORDERED: MASON NATURAL2000 IU PO (19:14)
[2021-11-02] MEDS ORDERED: PROAMATINE2.5 MG PO (19:15)
--- NOTE | 2021-11-02 19:20 | NUR ---
AT 1920, UROLOGY CONSULT CONTACTED (DR. WISE) ; CONFIRMS CONSULTATION.
[2021-11-02 19:41] VITALS: BP 128/51; PULSE 69; TEMP 97.9
--- NOTE | 2021-11-02 22:31 | NUR ---
PT TRANSFERRED AND ARRIVES TO ROOM 352 VIA BED BY ED STAFF, PT ABLE TO AMBULATE TO BED WITH ASSISTANCE AT ABOUT 1830, PT A/OX4, SPEECH NOTED TO BE A BIT SLURRED,NO FACIAL ASSYMETRY, PT ABLE TO FOLLOW COMMANDS AND HOLD CONVERSATION WITH THIS NURSE, MARY BUTLER COMPLETED MED REC WITH PT AND PTS VIA PHONE, ASSESMENT COMPLETE BY THIS NURSE, MULTIPLE SKIN TEARS NOTED ON RIGHT ELBOW AND PT'S BILAT FOREARMS, MARSH INSERTED ON ADMISSION AT ER, URINE CLOUDY AND YELLOW. PT REPORTS NO PAIN, N,V. PT CURRENTLY REPORTS CONSTIPATION AND IS ABLE TO PASS GAS. POC DISCUSSED WITH PT. PT VERBALIZES UNDERSTANDING. PT ORIENTED TO MEDICAL FLOOR, HOSPITAL POLICY. ALL QUESTIONS/CONCERNS ANSWERED AT THIS TIME. CALL LIGHT WITHIN REACH. BED ALARM ON.
[2021-11-02 23:23] VITALS: BP 124/64; PULSE 63; TEMP 98.3
--- NOTE | 2021-11-03 00:49 | NUR ---
FLEET ENEMA PROVIDED AT 0030, 500CC INSERTED WITH INSTANT VOIDING NOTED. PT TOLERATED ENEMA WELL, DENIES DISCOMFORT. PT CURRENTLY ON BEDSIDE COMMODE. THIS NURSE WILL CONTINUE TO MONITOR.
[2021-11-03 03:19] VITALS: BP 118/39; PULSE 63; TEMP 99
--- NOTE | 2021-11-03 05:25 | NUR ---
PT SUCCESFULLY PASSED 3 LARGE BM THIS NIGHT, PT REMAINS A/OX4, WITH SOME INCOMPREHENSIBLE WORD EXPRESSION AT SELDOM TIMES, ABX INFUSING TO LFA IV, ALL NEEDS MET THIS SHIFT. CALL LIGHT WITHIN REACH.
--- NOTE | 2021-11-03 06:13 | NUR ---
PT RUNNING LOW GRADE FEVER, TEMPERATURE LOWERED, BLANKET TAKEN OFF. THIS NURSE WILL MONITOR CLOSELY.
[2021-11-03 06:24] LABS: MEAN CELL VOLUME 86 fl (80.0-100.0); MEAN CORPUSCULAR HGB CONC 33 g/dl (33.0-37.0); MEAN PLATELET VOLUME 10.4 fl (7.4-10.4); PLATELET COUNT 169 K/mm3 (130-400); REDCELL DISTRIBUTION WIDTH-CV 13.7 % (11.5-14.5)
[2021-11-03 06:26] LABS: HEMATOCRIT 29.3 % (42.0-52.0); HEMOGLOBIN 9.8 g/dl (13.5-18.0); MEAN CORPUSCULAR HEMOGLOBIN 29 pg (27-31)
[2021-11-03 06:49] LABS: CALCIUM 8.4 mg/dL (8.4-10.2); CREATININE, serum 2.56 mg/dL (0.72-1.25); POTASSIUM 4.2 mmol/L (3.5-4.5)
[2021-11-03 07:59] VITALS: BP 113/39; PULSE 65; TEMP 98
--- NOTE | 2021-11-03 08:43 | NUR ---
Scheduled medication given. Shift assessment performed. Patient denies any pain, discomfort, SOA, or futher needs at this time. Buenrostro catheter in place, securement device in use, no kinks in tubing. Urine pale yellow and cloudy. Call light in reach. Fall percautions in place.
--- NOTE | 2021-11-03 10:19 | NUR ---
Initial visit; Patient kindly thanked for stopping. He was using telephone, offered blessings to which he responded.
[2021-11-03 11:53] VITALS: BP 137/50; PULSE 61; TEMP 97.5
--- NOTE | 2021-11-03 15:45 | NUR ---
Women'S Soccer Coach and SW student met with patient and patient's , Merari (ph#[phone]) to discuss discharge planning. Patient lives in [place] with his and sees Dr. Piper for primary care. Patient obtains medications from either [facility] or [facility]. Patient has a cane, walker, and tub transfer bench at home. Patient reports he is normally independent with ADLS and plans to return home upon discharge. Patient's advised they have Home Health services from [facility]. Patient also has Advance Directives in EMR which designate his Merari then Yrn Harrington and Farida Fam as DPOA-HC. SW contacted Cyemanii at [facility] and faxed clinical updates. Discharge Plan: Home with [facility] .
[2021-11-03 16:32] VITALS: BP 102/40; PULSE 62; TEMP 97.5
--- NOTE | 2021-11-03 19:09 | NUR ---
Patient has had an uneventful day. VSS. Patient A&O. Denies any pain, discomfort, SOA, or further needs at this time. Buenrostro catheter in place. Securement device in use, no kinks in tubing. Patient continues to have loose stools this shift. 2 large episodes reported. Dressing on right elbow wound changed. Xeroform, aquacell, and kerlex used. Call light in reach. Fall percautions in place.
[2021-11-03 20:11] VITALS: BP 122/42; PULSE 76; TEMP 97.5
[2021-11-03 23:42] VITALS: BP 142/57; PULSE 71; TEMP 98.2
[2021-11-04 03:48] VITALS: BP 129/45; PULSE 61; TEMP 98.6
[2021-11-04 07:00] LABS: BASO # 0.1 K/mm3 (0.0-0.2); BASO % 0.5 % (0.0-2.0); EOS # 0.3 K/mm3 (0.0-0.7); EOS % 2.9 % (0.0-4.0); GRAN # 8.5 K/mm3 (1.4-6.5); GRAN % 83.6 % (42.2-75.2); LYMPH # 0.5 K/mm3 (1.2-3.4); LYMPH % 5.3 % (20.0-51.0); MEAN CELL VOLUME 87 fl (80.0-100.0); MEAN CORPUSCULAR HGB CONC 33 g/dl (33.0-37.0); MEAN PLATELET VOLUME 10.3 fl (7.4-10.4); MONO # 0.7 K/mm3 (0.1-0.6); MONO % 7.3 % (1.7-9.3); PLATELET COUNT 168 K/mm3 (130-400); RED BLOOD COUNT 3.35 M/mm3 (4.20-5.60); REDCELL DISTRIBUTION WIDTH-CV 13.6 % (11.5-14.5)
[2021-11-04 07:05] LABS: HEMATOCRIT 29.1 % (42.0-52.0); HEMOGLOBIN 9.6 g/dl (13.5-18.0); MEAN CORPUSCULAR HEMOGLOBIN 29 pg (27-31)
[2021-11-04 07:15] LABS: CALCIUM 8.7 mg/dL (8.4-10.2); CREATININE, serum 2.29 mg/dL (0.72-1.25); POTASSIUM 4.2 mmol/L (3.5-4.5)
--- NOTE | 2021-11-04 07:48 | NUR ---
PT HAD UNEVENTFUL NIGHT THIS SHIFT, AFEBRILE, VSS, 02 ROOM AIR, 1 BM THIS SHIFT. PT TOILET NOT WORKING, WORK ORDER INPUT THIS AM. ALL NEEDS MET THIS SHIFT. CALL LIGHT WITHIN REACH.
[2021-11-04 08:35] VITALS: BP 154/53; PULSE 76; TEMP 97.9
--- NOTE | 2021-11-04 10:18 | NUR ---
PT SITTING UP IN RECLINER AFTER WORKING WITH PT/OT. MORNING MEDICATIONS GIVEN. SHIFT ASSESSMENT COMPLETED. DENIES ANY PAIN OR NEEDS AT THIS TIME. MARSH CATHETER DRAINING WELL. CONTINUING TO MONITOR.
[2021-11-04] MEDS ORDERED: AMOXICILLIN/CLA1 TA1 PO (10:53)
[2021-11-04 11:26] VITALS: BP 129/52; PULSE 60
[2021-11-04] MEDS ORDERED: PROBIOTIC ACID1 EAC3 PO (15:07)
--- NOTE | 2021-11-04 15:59 | NUR ---
MARSH REMOVED AT THIS TIME. PT URINATED AFTER REMOVING. WILL MONITOR FOR BM TO OBTAIN STOOL CULTURE.
[2021-11-04 16:00] VITALS: BP 193/70; PULSE 59
--- NOTE | 2021-11-04 16:38 | NUR ---
Entry Level Financial Analyst contacted Cyemanii at [facility] and faxed discharge orders.
--- NOTE | 2021-11-04 17:40 | NUR ---
DISCHARGE INSTRUCTIONS GIVEN TO PATIENT WITH AT BEDSIDE. ALL QUESTIONS ANSWERED. IV AND TELE D/C.
== END 2021-11-04 17:41 | disposition home health service (06) | DRG 690 ==
LOC: COL.ER 13:35 → MEDICAL 15:56
PROVIDERS: Physician Assistant; Student in an Organized Health Care Education/Training Program; ADMIT Internal Medicine
DX: N12 Tubulo-interstitial nephritis, not specified as acute or chronic (principal); E87.1 Hypo-osmolality and hyponatremia; J44.9 Chronic obstructive pulmonary disease, unspecified; N17.9 Acute kidney failure, unspecified; I48.91 Unspecified atrial fibrillation; E87.5 Hyperkalemia; K59.00 Constipation, unspecified; G20 Parkinson's disease; I12.9 Hypertensive chronic kidney disease with stage 1 through stage 4 chronic kidney disease, or unspecified chronic kidney disease; N18.9 Chronic kidney disease, unspecified; E11.22 Type 2 diabetes mellitus with diabetic chronic kidney disease; E11.40 Type 2 diabetes mellitus with diabetic neuropathy, unspecified; D64.9 Anemia, unspecified; E03.9 Hypothyroidism, unspecified; K21.9 Gastro-esophageal reflux disease without esophagitis; E11.51 Type 2 diabetes mellitus with diabetic peripheral angiopathy without gangrene; G89.29 Other chronic pain; M54.9 Dorsalgia, unspecified; N32.0 Bladder-neck obstruction; B96.20 Unspecified Escherichia coli [E. coli] as the cause of diseases classified elsewhere; Z20.822 Contact with and (suspected) exposure to COVID-19; Z95.0 Presence of cardiac pacemaker; Z85.51 Personal history of malignant neoplasm of bladder; Z86.718 Personal history of other venous thrombosis and embolism; Z87.891 Personal history of nicotine dependence; Z23 Encounter for immunization
CPT/HCPCS: 99223-AI; 99232-AI; 99239; A4314; J0610; J1815; J2543; J7030

== ENCOUNTER → 2022-05-12 | Outpatient (CLI) | payer MEDICARE, OTHER ==
[~2022-05-12] MED LIST changes: +AMOXICILLIN/CLA1 TA1 PO; +MASON NATURAL2000 IU PO; +PROAMATINE2.5 MG PO; +PROBIOTIC ACID1 EAC3 PO
== END ==
LOC: COL.RAD 10:00
DX: R13.10 Dysphagia, unspecified (principal)

== ENCOUNTER → 2022-05-19 | Outpatient (CLI) | payer MEDICARE, OTHER | LOC: COL.RAD 08:40 | DX: G20 Parkinson's disease (principal) ==

== ENCOUNTER 2022-06-01 15:30 | Outpatient (RCR) | payer MEDICARE, OTHER | END 2022-06-03 | disposition home or self-care (01) | LOC: WSST | DX: R13.10 Dysphagia, unspecified (principal) ==

== ENCOUNTER → 2022-11-17 | Outpatient (CLI) | payer MEDICARE, OTHER ==
[~2022-11-17] MED LIST changes: +ATROPINE 2 ML2 ML OU; +ATROPINE SULFATE S1% OP; +B-12 500 MCG; +B-12 500 MCG PO; +CATAPRES 0.1MG0.1 MG PO; +EXELON9.5 MG/24 TD; +JARDIANCE10; +NAMENDA 10MG TA10 MG PO; +PEPCID AC 10MG10 MG PO; +SEROQUEL 2525 MG/TAB PO; +SYNTHROID0.05 MG/TA PO; -SYNTHROID0.1 MG/TAB PO; +ZANAFLEX 4MG TAB4 MG PO
[2022-11-17 12:03] LABS: CREATININE, serum 2.73 mg/dL (0.72-1.25)
== END ==
LOC: COL.LAB 11:07
PROVIDERS: Radiology Radiation Oncology
DX: C67.8 Malignant neoplasm of overlapping sites of bladder (principal); G20 Parkinson's disease; I12.9 Hypertensive chronic kidney disease with stage 1 through stage 4 chronic kidney disease, or unspecified chronic kidney disease; N18.9 Chronic kidney disease, unspecified; Z80.52 Family history of malignant neoplasm of bladder

== ENCOUNTER 2023-01-05 15:00 | Observation (INO) | payer MEDICARE, OTHER ==
[~2023-01-05] VITALS: Ht 182.9 cm; Wt 83.0 kg
[2023-01-05 16:48] LABS: COLLECTION METHOD CLEAN CATCH
[2023-01-05 16:55] LABS: BASO % 0.3 % (0.0-2.0); GRAN # 2.4 K/mm3 (1.4-6.5); GRAN % 80.2 % (42.2-75.2); LYMPH # 0.4 K/mm3 (1.2-3.4); LYMPH % 12.8 % (20.0-51.0); MEAN CELL VOLUME 85 fl (80.0-100.0); MEAN CORPUSCULAR HGB CONC 34 g/dl (33.0-37.0); MEAN PLATELET VOLUME 9.7 fl (7.4-10.4); MONO # 0.1 K/mm3 (0.1-0.6); MONO % 4.7 % (1.7-9.3); PLATELET COUNT 152 K/mm3 (130-400); RED BLOOD COUNT 2.87 M/mm3 (4.20-5.60); REDCELL DISTRIBUTION WIDTH-CV 14.8 % (11.5-14.5)
[2023-01-05 16:56] LABS: HEMATOCRIT 24.5 % (42.0-52.0); HEMOGLOBIN 8.2 g/dl (13.5-18.0); MEAN CORPUSCULAR HEMOGLOBIN 29 pg (27-31); PH 5.5 (5.0-8.5); URINE APPEARANCE Clear (CLEAR/HAZY); URINE BLOOD TRACE-INTACT (NEGATIVE); URINE COLOR Yellow (YELLOW); URINE GLUCOSE 2+ (NEGATIVE)
[2023-01-05 16:57] LABS: URINE KETONE Negative (NEGATIVE); URINE NITRATE Negative (NEGATIVE); URINE PROTEIN(semi-quant) Negative (NEGATIVE); URINE UROBILINOGEN 0.2 E.U/dL (0.2-1.0)
[2023-01-05 17:08] LABS: ALBUMIN 3.2 gm/dL (3.4-4.8); ALKALINE PHOSPHATASE 32 U/L (40-150); ANION GAP 11 mmol/L (7-16); AST,SGOT 14 U/L (5-34); BILIRUBIN,TOTAL 0.3 mg/dL (0.2-1.2); BLOOD UREA NITROGEN 69 mg/dL (8-26); CALCIUM 8.4 mg/dL (8.4-10.2); CARBON DIOXIDE 21 mmol/L (23-31); CHLORIDE 108 mmol/L (98-107); CREATININE, serum 2.91 mg/dL (0.72-1.25); GLUCOSE 162 mg/dL (70-99); POTASSIUM 4.5 mmol/L (3.5-4.5); SODIUM 140 mmol/L (136-145); TOTAL PROTEIN 6.1 gm/dL (6.2-8.1)
[2023-01-05 17:14] LABS: ALANINE AMINOTRANSFERASE < 6 U/L (0-55)
[2023-01-05 17:17] LABS: TROPONIN-I 0.134 ng/mL (0.00-0.033)
[2023-01-05 17:22] LABS: SQUAMOUS EPITHELIAL None Seen /hpf (0-10); URINE BACTERIA None Seen /hpf (NONE SEEN)
[2023-01-05] MEDS ORDERED: ZANAFLEX 4MG TAB4 MG PO (20:41)
[2023-01-05] MEDS ORDERED: FLONASE NASAL S16 GM NS (20:42)
[2023-01-05 20:46] VITALS: BP 162/69; PULSE 80; TEMP 97.4
[2023-01-06] VITALS (7 sets, daily range): BP systolic 117–182; BP diastolic 46–66; PULSE 62–78; TEMP 97.4–98.1
--- NOTE | 2023-01-06 03:32 | NUR ---
PATIENT ADMITTED TO ROOM 354 FROM THE EMERGENCY DEPARTMENT. HE IS AOX4 AND PLEASANT TO SPEAK WITH. SPOUSE WITH PATIENT AT THE TIME OF THE ASSESSMENT. TAKING RADIATION AND CHEMO, ON CHEMO PRECAUTIONS. PT/OT. ACHS, 177 BLOOD GLUCOSE AT BEDTIME. HE IS COMPLAINING OF FEELING MORE WEAK THAN USUAL AND HAS FALLEN MULTIPLE TIMES. SBA BUT IS A FALL RISK. NS @75ML/HR. PORT RIGHT CHEST NOT ACCESSED D/T CHEMO USE. 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 SCD'S ON PATIENT. ECHO PLANNED FOR THIS MORNING, WILL NEED TO TURN OFF NEUROSTIMULATOR FOR THIS. TROPONINS DOWNTRENDING. CREA- 2.91 WITH HISTORY OF CKD. CALL LIGHT IN REACH. BED IN LOWEST POSITION. BED ALARM ACTIVE. FALL RISK PROTOCAL ACTIVE.
[2023-01-06 06:26] LABS: MEAN CELL VOLUME 86 fl (80.0-100.0); MEAN CORPUSCULAR HGB CONC 33 g/dl (33.0-37.0); MEAN PLATELET VOLUME 9.6 fl (7.4-10.4); PLATELET COUNT 144 K/mm3 (130-400); RED BLOOD COUNT 2.68 M/mm3 (4.20-5.60); REDCELL DISTRIBUTION WIDTH-CV 15.1 % (11.5-14.5)
[2023-01-06 06:28] LABS: HEMATOCRIT 23.1 % (42.0-52.0); HEMOGLOBIN 7.7 g/dl (13.5-18.0); MEAN CORPUSCULAR HEMOGLOBIN 29 pg (27-31)
[2023-01-06 06:40] LABS: CALCIUM 7.9 mg/dL (8.4-10.2); CREATININE, serum 2.65 mg/dL (0.72-1.25); MAGNESIUM 1.8 mg/dL (1.6-2.6); POTASSIUM 4.4 mmol/L (3.5-4.5)
[2023-01-06 06:52] LABS: ANISOCYTOSIS 1+; BAND 3 % (0-10); EOSINOPHIL 1 % (0-4); LYMPHOCYTE 17 % (20.0-51.0); NEUTROPHILS 77 % (42.0-75.2); NUCLEATED RED BLOOD CELL 1 (0-6); PLATELET ESTIMATE NORMAL (NORMAL)
--- NOTE | 2023-01-06 07:00 | NUR ---
PATIENT RESTING IN BED. NO NEEDS OR COMPLAINTS AT THIS TIME. PATIENTS CALL LIGHT WITHIN REACH.
--- NOTE | 2023-01-06 13:30 | NUR ---
PATIENT RESTING IN RECLINER. IN ROOM. PATIENT DENIES ANY NEEDS OR COMPLAINTS AT THIS TIME.
--- NOTE | 2023-01-06 15:21 | NUR ---
Belt Maker Helper met with patient to discuss discharge planning. Patient lives 5 miles west of [place], [place] with his , Merari (ph#[phone]). Patient sees Dr. Piper for primary care and [facility]. Patient is currently receiving chemo and radiation. Patient uses [facility] for pharmacy. Patient has both a cane and walker at home. Patient reports independence with ADLS and plans to return home at time of discharge. Patient has Home Health for nursing through [facility]. Patient would be interested in adding therapy services as well. SW contacted [facility] and faxed clinical updates. SW also contacted patient's , Merari to review discharge plan. Merari is in agreement with discharge home with and advised they were told they would discharge tomorrow. Discharge Plan: Home with [facility]
--- NOTE | 2023-01-06 23:38 | NUR ---
PATIENT ASSESSED AND MEDICATIONS GIVEN. HE IS AOX4 AND PLEASANT. NS CONTINUES AT 75ML/HR. A PACED WITH A BBB ON TELEMETRY. PORT NOT ACCESSED. ACHS- 130 WAS HIS BLOOD GLUCOSE AT BEDTIME. CREA- 2.65. POSSIBLE DISCHARGE HOME WITH HH TOMORROW. THE PATIENT STATES THAT HE HAS A CAREGIVER THAT COMES OUT ONCE A WEEK ALREADY BUT WOULDN'T MIND HEARING ABOUT IT FROM THE COIN MACHINE SUPERVISOR. CHEMO PRECAUTIONS. SCD'S ON PATIENT. CALL LIGHT IN PLACE. BED IN LOWEST POSITION. BED ALARM ACTIVE.
[2023-01-07 03:21] VITALS: BP 147/57; PULSE 62; TEMP 97.5
[2023-01-07 07:16] LABS: MEAN CELL VOLUME 88 fl (80.0-100.0); MEAN CORPUSCULAR HGB CONC 32 g/dl (33.0-37.0); MEAN PLATELET VOLUME 9.7 fl (7.4-10.4); PLATELET COUNT 136 K/mm3 (130-400); RED BLOOD COUNT 2.84 M/mm3 (4.20-5.60); REDCELL DISTRIBUTION WIDTH-CV 15.5 % (11.5-14.5)
[2023-01-07 07:17] LABS: HEMATOCRIT 24.9 % (42.0-52.0); HEMOGLOBIN 7.9 g/dl (13.5-18.0); MEAN CORPUSCULAR HEMOGLOBIN 28 pg (27-31)
[2023-01-07 07:36] LABS: CREATININE, serum 2.15 mg/dL (0.72-1.25); POTASSIUM 4.3 mmol/L (3.5-4.5)
[2023-01-07 07:48] LABS: BAND 6 % (0-10); BASOPHIL 3 % (0-2); EOSINOPHIL 1 % (0-4); LYMPHOCYTE 7 % (20.0-51.0); METAMYELOCYTE 2 % (0-0); NEUTROPHILS 77 % (42.0-75.2); NUCLEATED RED BLOOD CELL 1 (0-6); OVALOCYTES 1+; PLATELET ESTIMATE NORMAL (NORMAL); TEAR DROP CELLS 1+
[2023-01-07 07:49] LABS: ANISOCYTOSIS 1+
[2023-01-07 07:58] VITALS: BP 102/40; PULSE 62; TEMP 97.7
--- NOTE | 2023-01-07 08:10 | NUR ---
Pt is watching TV. Morning medications administered per eMAR. Shift assessment completed. VSS. Telemetry remains on; paced. NS infusing at 75mL/hr in R AC with leeanne wrap in place. Pt has port in R chest, not accessed. No request at this time. Call light within reach. Fall precautions in place.
--- NOTE | 2023-01-07 10:52 | NUR ---
Pt discharge instructions given to pt and spouse. All questions answered. INT in R AC discontinued with catheter tip intact.
--- NOTE | 2023-01-07 11:01 | NUR ---
Pt escorted out of facility via wheelchair by JEANINE Putnam and spouse.
--- NOTE | 2023-01-07 12:55 | NUR ---
Patient to discharge home today with Home Health. SW contacted [facility] and faxed discharge orders and summary.
== END 2023-01-07 11:00 | disposition home or self-care (01) ==
LOC: COL.ER 15:00 → MEDICAL 18:30
PROVIDERS: Family Medicine; Student in an Organized Health Care Education/Training Program; ADMIT Hospitalist
DX: R53.1 Weakness (principal); C67.9 Malignant neoplasm of bladder, unspecified; N17.9 Acute kidney failure, unspecified; R77.8 Other specified abnormalities of plasma proteins; N18.9 Chronic kidney disease, unspecified; N32.0 Bladder-neck obstruction; G20 Parkinson's disease; F02.80 Dementia in other diseases classified elsewhere, unspecified severity, without behavioral disturbance, psychotic disturbance, mood disturbance, and anxiety; I48.91 Unspecified atrial fibrillation; J44.9 Chronic obstructive pulmonary disease, unspecified; E11.22 Type 2 diabetes mellitus with diabetic chronic kidney disease; E11.42 Type 2 diabetes mellitus with diabetic polyneuropathy; M54.9 Dorsalgia, unspecified; G89.29 Other chronic pain; Z79.899 Other long term (current) drug therapy; E03.9 Hypothyroidism, unspecified; D64.9 Anemia, unspecified; Z79.890 Hormone replacement therapy; Z79.84 Long term (current) use of oral hypoglycemic drugs
CPT/HCPCS: A9270; G0378; J7030